=== PATIENT | female | born 1970 | race Caucasian/White ===

== ENCOUNTER 2017-04-03 06:23 | Inpatient (IN) ==
[2017-04-03] MEDS ORDERED: Ondansetron 4 MG/2 ML VIAL IVP ONE (06:36)
--- NOTE | 2017-04-03 06:36 | Emergency Department Note ---
START Narrative - START START: Patient to ED with abdominal pain. Patient saw her primary provider the other day. She states she was started on antibiotic for a UTI. She states she is getting worse. Patient currently taking Bactrim and Zofran. Subjective fever. On examination she is tachycardic. Systolic blood pressure in the 90s. Plan. UA with septic workup. Patient will be seen by dayshift.
[2017-04-03] MEDS: 0.9 % Sodium Chloride 1,000 ML IVC SCH ×2 (06:57→07:52)
[2017-04-03 07:04] LABS: Basophils % 0.2 %; Eosinophils % 0.1 %; Hematocrit 46.4 % (35.3-44.9); Hemoglobin 15.5 g/dL (11.5-15.4); Immature Granulocytes % 1.1 % (0-4); Lymphocytes # 0.4 K/mcL (0.6-4.6); Lymphocytes % 3.2 %; Mean Corpuscular HGB Conc 33.4 g/dL (31.6-35.5); Mean Corpuscular Volume 83.9 fL (83.0-100.0); Monocytes % 6.9 %; Neutrophils # 12.1 K/mcL (1.6-8.9); Platelet Count 298 K/mcL (140-400); Red Blood Count 5.53 M/mcL (3.82-4.97); Segmented Neutrophils % 88.5 %
[2017-04-03 07:10] LABS: Bilirubin,Urine Moderate (Negative); Blood,Urine Large (Negative); Clarity,Urine Cloudy (Clear); Color,Urine Orange (Yellow); Glucose,Urine (UA) >=1000 mg/dL (Normal); Ketones,Urine 80 mg/dL (Negative); Leukocyte Esterase,Urine Small (Negative); Nitrite,Urine Positive (Negative); Protein,Urine 100 mg/dL (Neg-Trace); Specific Gravity,Urine 1.027 (1.010-1.025); Urobilinogen,Urine Normal (Normal)
[2017-04-03 07:11] LABS: Prothrombin Time 11.1 Seconds (9.4-12.1)
[2017-04-03 07:12] LABS: Squamous Epithelial Cell,Urine Many per lpf (None-Few); WBC,Urine TNTC per hpf (0-3)
--- NOTE | 2017-04-03 07:13 | Emergency Department Note ---
Disposition Clinical Impression: DAREK (acute kidney injury), Pyelonephritis Urinary tract infection Qualifiers: Urinary tract infection type: site unspecified Hematuria presence: with hematuria Qualified Code(s): N39.0 - Urinary tract infection, site not specified Sepsis Qualifiers: Sepsis type: sepsis due to unspecified organism Qualified Code(s): A41.9 - Sepsis, unspecified organism DKA (diabetic ketoacidoses) Qualifiers: Diabetes mellitus type: other specified (including KAVITHA) Diabetes mellitus complication detail: without coma Qualified Code(s): E13.10 - Other specified diabetes mellitus with ketoacidosis without coma Disposition: Admitted As Inpatient Condition: Critical Referrals: Lee Ann Joya [employer] [Primary Care Provider] - Forms: ED Satisfaction Letter Time of Disposition: 08:08 General Adult HPI - General Chief complaint: ED Urogenital-Female Stated complaint: "Kidney infection" Time Seen by Provider: 04/03/17 06:28 Source: family Mode of arrival: ambulatory Limitations: no limitations Nursing Notes Reviewed: Yes Vital Signs Reviewed: Yes - History of Present Illness HPI Narrative: 47-year-old female with history of diabetes arrives [facility] emergency department with concern for feeling ill. The patient's family noted that the patient went to PCPs office 3 days ago for evaluation of right flank pain. Dip in the office noted a UTI the patient was treated with an IM injection of antibiotic since started on Bactrim by mouth. The patient has been taking the medications. In addition the patient was started on Januvia. The patient arrives to the emergency department with continued worsening condition, alteration in mentation, and tachycardia. The patient was a sign out from the night team and labs were initially placed by them. The patient is a diabetic with a glucose that read 400's this morning. The patient has never been in DKA or been this sick in the past according to family. Onset (ago): day(s) (3) Location: right (flank) Radiation: non-radiation Pain Severity: moderate Pain Scale: 5 Quality: aching Consistency: constant, Worsening Improves with: nothing Worsens with: nothing Associated symptoms: Reports: fever/chills, malaise, nausea/vomiting, weakness Treatments Prior to Arrival: none - Related Data Allergies Allergy/AdvReac Type Severity Reaction Status Date / Time No Known Allergies Allergy Verified 04/03/17 06:24 All systems ED: reviewed and negative except as stated. Constitutional: Reports: fever, chills, weakness Eyes: Denies: vision change ENT ED: Denies: congestion Cardiovascular: Denies: chest pain Respiratory: Denies: dyspnea Gastrointestinal: Reports: abdominal pain, nausea. Denies: vomiting, diarrhea, constipation, hematemesis, melena, hematochezia Genitourinary: Reports: dysuria. Denies: urgency, frequency, hematuria Musculoskeletal: Reports: myalgia. Denies: back pain, neck pain, arthralgia Integumentary: Denies: rash Neurological: Reports: weakness, confusion. Denies: headache Past Medical History - Past Medical History Attestation: Yes The following information was validated with the patient. Source: patient Medical history: Reports: diabetes Surgical history: Reports: non-contributory Psychiatric history: Reports: depression - Social History Smoking Status: Never smoker Smokeless Tobacco Status: No Alcohol use: Reports: none Drug use: Reports: none Physical Exam - General Limitations: altered mental status General appearance: alert, in no apparent distress - Head Head exam: atraumatic, normocephalic, normal inspection - Eye Eye exam: Present: normal appearance, PERRL, EOMI - ENT ENT exam: normal exam, normal oropharynx, mucous membranes moist - Neck Neck exam: Present: normal inspection, full ROM, trachea midline - Chest Chest inspection: Present: normal inspection, symmetric chest wall rise - Respiratory Respiratory exam: Present: normal lung sounds bilaterally - Cardiovascular Cardiovascular exam: Present: normal rhythm, tachycardia, normal heart sounds - Abdominal Exam Abdominal exam: Present: soft, tenderness (Right flank). Absent: distention, guarding, rebound, rigidity, heel tap sign - Extremities Exam Extremities exam: Present: normal inspection, full ROM. Absent: tenderness, pedal edema - Neurological Exam Neurological exam: Present: alert, oriented X3 - Skin Skin exam: Present: warm, dry, intact, normal color Course Vital Signs Temperature 98.1 F 04/03/17 06:24 Pulse Rate 149 04/03/17 06:24 Respiratory Rate 20 04/03/17 06:24 Blood Pressure 99/69 04/03/17 06:24 O2 Sat by Pulse Oximetry 100 04/03/17 06:24 Temperature 98.1 F 04/03/17 06:24 Pulse Rate 135 04/03/17 08:06 Respiratory Rate 20 04/03/17 08:06 Blood Pressure 136/81 04/03/17 08:06 O2 Sat by Pulse Oximetry 99 04/03/17 08:06 Oxygen Delivery Oxygen Delivery Room Air Medical Decision Making - MDM Narrative Medical decision making narrative: Patient's workup here demonstrates findings consistent with DKA, and urosepsis. Patient's CT scan reveals no obstructive urolithiasis. The patient does have findings consistent with pyelonephritis. The patient was given 4 L of IV fluids here in the emergency department as well as being on an insulin drip. The patient was given vancomycin and Zosyn for concern for sepsis. The patient' s heart rate has continued to decline the 140s. Her blood pressure quickly responded to IV fluids as well. The patient's mental status remains altered at this time. Given the patient's pH and bicarbonate levels, I am concerned about the patient and feel as though the patient needs ICU admission criteria. I spoke with the poising inspector, Dr. King, who agrees with admission. We will admit the patient to the ICU at this time. Patient's family made aware and agreed to plan. No further questions or concerns. - Medical Records Medical records reviewed: Yes I reviewed the patient's medical records. - Lab Data Lab results reviewed: Yes I reviewed the patient's lab results. Result diagrams: 04/03/17 06:48 04/03/17 06:48 Lab Results 04/03/17 04/03/17 04/03/17 Range/Units 06:48 06:48 06:48 WBC 13.7 H (4.3-11.1) K/mcL RBC 5.53 H (3.82-4.97) M/mcL Hgb 15.5 H (11.5-15.4) g/dL Hct 46.4 H (35.3-44.9) % MCV 83.9 (83.0-100.0) fL MCH 28.0 (28.0-33.3) pg MCHC 33.4 (31.6-35.5) g/dL RDW 12.0 (11.5-14.5) % Plt Count 298 (140-400) K/mcL MPV 10.0 (9.4-12.4) fL Immature Gran % 1.1 (0-4) % Seg Neutrophils % 88.5 % Lymphocytes % 3.2 % Monocytes % 6.9 % Eosinophils % 0.1 % Basophils % 0.2 % Neutrophils # 12.1 H (1.6-8.9) K/mcL Lymphocytes # 0.4 L (0.6-4.6) K/mcL Monocytes # 1.0 (0.0-1.3) K/mcL Eosinophils # 0.0 (0.0-0.6) K/mcL Basophils # 0.0 (0.0-0.2) K/mcL PT 11.1 (9.4-12.1) Seconds INR 1.0 APTT 26.0 (26.0-36.0) Seconds VBG pH (7.32-7.42) pH Units VBG pCO2 (41-51) mmHg VBG pO2 (25-50) mmHg VBG HCO3 (21-27) mEq/L Sodium (136-145) mEq/L Potassium (3.5-4.5) mEq/L Chloride (98-109) mEq/L Carbon Dioxide (19-29) mEq/L BUN (7-20) mg/dL Creatinine (0.57-1.11) mg/dL Est GFR ( Amer) (> 60) Est GFR (Non-Af Amer) (> 60) BUN/Creatinine Ratio (6-26) Glucose (70-99) mg/dL Calculated Osmolality (280-300) Lactic Acid (0.5-2.2) mmol/L Calcium (8.6-10.8) mg/dL Magnesium (1.6-2.6) mg/dL Total Bilirubin (0.2-1.2) mg/dL Direct Bilirubin (0.0-0.5) mg/dL Indirect Bilirubin (0.0-1.2) mg/dL AST (5-34) Units/L ALT (0-55) Units/L Alkaline Phosphatase (38-126) Units/L Troponin I (0-0.03) ng/mL Serum Total Protein (6.0-8.3) g/dL Albumin (3.5-5.0) g/dL Globulin (2.4-3.5) g/dL Albumin/Globulin Ratio (1.1-2.2) Lipase (8-78) Units/L Beta-Hydroxybutyric Acd (0.02-0.27) mmol/L Urine Color [place] A (Yellow) Urine Clarity Cloudy A (Clear) Urine pH 6.0 (5.0-8.0) pH Units Ur Specific [place] 1.027 H (1.010-1.025) Urine Protein 100 H (Neg-Trace) mg/dL Urine Glucose (UA) >=1000 H (Normal) mg/dL Urine Ketones 80 H (Negative) mg/dL Urine Blood Large H (Negative) Urine Nitrite Positive A (Negative) Urine Bilirubin Moderate H (Negative) Urine Urobilinogen Normal (Normal) mg/dL Ur Leukocyte Esterase Small H (Negative) Urine Microscopic RBC TNTC H (0-3) per hpf Urine Microscopic WBC TNTC H (0-3) per hpf Ur Squamous Epith Cells Many H (None-Few) per lpf Amorphous Sediment Moderate H (Few) Urine Bacteria Few (None-Few) per hpf Ur Culture Indicated? NO (NO) Person Notif of Crit 04/03/17 04/03/17 04/03/17 Range/Units 06:48 06:48 06:48 WBC (4.3-11.1) K/mcL RBC (3.82-4.97) M/mcL Hgb (11.5-15.4) g/dL Hct (35.3-44.9) % MCV (83.0-100.0) fL MCH (28.0-33.3) pg MCHC (31.6-35.5) g/dL RDW (11.5-14.5) % Plt Count (140-400) K/mcL MPV (9.4-12.4) fL Immature Gran % (0-4) % Seg Neutrophils % % Lymphocytes % % Monocytes % % Eosinophils % % Basophils % % Neutrophils # (1.6-8.9) K/mcL Lymphocytes # (0.6-4.6) K/mcL Monocytes # (0.0-1.3) K/mcL Eosinophils # (0.0-0.6) K/mcL Basophils # (0.0-0.2) K/mcL PT (9.4-12.1) Seconds INR APTT (26.0-36.0) Seconds VBG pH (7.32-7.42) pH Units VBG pCO2 (41-51) mmHg VBG pO2 (25-50) mmHg VBG HCO3 (21-27) mEq/L Sodium 125 L (136-145) mEq/L Potassium 4.6 H (3.5-4.5) mEq/L Chloride 93 L (98-109) mEq/L Carbon Dioxide 6 L* (19-29) mEq/L BUN 49 H (7-20) mg/dL Creatinine 2.56 H (0.57-1.11) mg/dL Est GFR ( Amer) 24 L (> 60) Est GFR (Non-Af Amer) 20 L (> 60) BUN/Creatinine Ratio 19 (6-26) Glucose 696 H* (70-99) mg/dL Calculated Osmolality 306 H (280-300) Lactic Acid 2.7 H (0.5-2.2) mmol/L Calcium 11.1 H (8.6-10.8) mg/dL Magnesium 2.6 (1.6-2.6) mg/dL Total Bilirubin 0.2 (0.2-1.2) mg/dL Direct Bilirubin 0.2 (0.0-0.5) mg/dL Indirect Bilirubin 0.0 (0.0-1.2) mg/dL AST 7 (5-34) Units/L ALT 7 (0-55) Units/L Alkaline Phosphatase 165 H (38-126) Units/L Troponin I 0.01 (0-0.03) ng/mL Serum Total Protein 9.4 H (6.0-8.3) g/dL Albumin 3.4 L (3.5-5.0) g/dL Globulin 6.0 H (2.4-3.5) g/dL Albumin/Globulin Ratio 0.6 L (1.1-2.2) Lipase 93 H (8-78) Units/L Beta-Hydroxybutyric Acd > 2.00 H (0.02-0.27) mmol/L Urine Color (Yellow) Urine Clarity (Clear) Urine pH (5.0-8.0) pH Units Ur Specific [place] (1.010-1.025) Urine Protein (Neg-Trace) mg/dL Urine Glucose (UA) (Normal) mg/dL Urine Ketones (Negative) mg/dL Urine Blood (Negative) Urine Nitrite (Negative) Urine Bilirubin (Negative) Urine Urobilinogen (Normal) mg/dL Ur Leukocyte Esterase (Negative) Urine Microscopic RBC (0-3) per hpf Urine Microscopic WBC (0-3) per hpf Ur Squamous Epith Cells (None-Few) per lpf Amorphous Sediment (Few) Urine Bacteria (None-Few) per hpf Ur Culture Indicated? (NO) Person Notif of Crit 04/03/17 Range/Units 07:37 WBC (4.3-11.1) K/mcL RBC (3.82-4.97) M/mcL Hgb (11.5-15.4) g/dL Hct (35.3-44.9) % MCV (83.0-100.0) fL MCH (28.0-33.3) pg MCHC (31.6-35.5) g/dL RDW (11.5-14.5) % Plt Count (140-400) K/mcL MPV (9.4-12.4) fL Immature Gran % (0-4) % Seg Neutrophils % % Lymphocytes % % Monocytes % % Eosinophils % % Basophils % % Neutrophils # (1.6-8.9) K/mcL Lymphocytes # (0.6-4.6) K/mcL Monocytes # (0.0-1.3) K/mcL Eosinophils # (0.0-0.6) K/mcL Basophils # (0.0-0.2) K/mcL PT (9.4-12.1) Seconds INR APTT (26.0-36.0) Seconds VBG pH 7.13 L* (7.32-7.42) pH Units VBG pCO2 22 L (41-51) mmHg VBG pO2 61 H (25-50) mmHg VBG HCO3 7 L (21-27) mEq/L Sodium (136-145) mEq/L Potassium (3.5-4.5) mEq/L Chloride (98-109) mEq/L Carbon Dioxide (19-29) mEq/L BUN (7-20) mg/dL Creatinine (0.57-1.11) mg/dL Est GFR ( Amer) (> 60) Est GFR (Non-Af Amer) (> 60) BUN/Creatinine Ratio (6-26) Glucose (70-99) mg/dL Calculated Osmolality (280-300) Lactic Acid (0.5-2.2) mmol/L Calcium (8.6-10.8) mg/dL Magnesium (1.6-2.6) mg/dL Total Bilirubin (0.2-1.2) mg/dL Direct Bilirubin (0.0-0.5) mg/dL Indirect Bilirubin (0.0-1.2) mg/dL AST (5-34) Units/L ALT (0-55) Units/L Alkaline Phosphatase (38-126) Units/L Troponin I (0-0.03) ng/mL Serum Total Protein (6.0-8.3) g/dL Albumin (3.5-5.0) g/dL Globulin (2.4-3.5) g/dL Albumin/Globulin Ratio (1.1-2.2) Lipase (8-78) Units/L Beta-Hydroxybutyric Acd (0.02-0.27) mmol/L Urine Color (Yellow) Urine Clarity (Clear) Urine pH (5.0-8.0) pH Units Ur Specific [place] (1.010-1.025) Urine Protein (Neg-Trace) mg/dL Urine Glucose (UA) (Normal) mg/dL Urine Ketones (Negative) mg/dL Urine Blood (Negative) Urine Nitrite (Negative) Urine Bilirubin (Negative) Urine Urobilinogen (Normal) mg/dL Ur Leukocyte Esterase (Negative) Urine Microscopic RBC (0-3) per hpf Urine Microscopic WBC (0-3) per hpf Ur Squamous Epith Cells (None-Few) per lpf Amorphous Sediment (Few) Urine Bacteria (None-Few) per hpf Ur Culture Indicated? (NO) Person Notif of Crit DR SEGURA - Radiology Data Radiology results reviewed: Yes I reviewed the patient's radiology results. - EKG Data EKG #1 EKG attestation: Yes I reviewed and interpreted this EKG. EKG results narrative: Heart rate 1 44 bpm. A QTc 384 ms. Sinus tachycardia. No ST elevation or ST depression noted. Critical Care Time Critical Care Time: Yes Total Critical Care Time: 35 Attestation: The high probability of a clinically significant, sudden or life threatening deterioration of the [endo] system(s) required my full and direct attention, intervention and personal management. The aggregate critical care time was [35] minutes. This time is in addition to time spent performing reported procedures but includes the following: [x] Data Review and interpretation [x] Patient assessment and monitoring of vital signs [x] Documentation [x] Medication orders and management Attestation Statement - Attestation Attestation: I examined this patient and my medical decision-making was reviewed with the Resident Physician, Dr. Segura. I agree with the documented findings, disposition and treatment plan as described except to the extent set forth below. Patient's 47-year-old white female with a history of diabetes mellitus type 1 on insulin who presents to the emergency department brought by her family this morning for altered mental status following a recent UTI that was diagnosed by her family physician on Tuesday. Patient was prescribed Bactrim to take orally and since that time has had symptoms of gradually worsening right-sided flank pain, lower abdominal pain, occasional nausea and vomiting, last episode about 2 AM this morning an overwhelming generalized weakness. Patient has seemed more confused this morning and her blood sugars are reading high. Patient arrived awake verbally responsive to questions but appears extremely fatigued and dehydrated with dry lips and mucous membranes. Patient was signed out to us by the pediatrician/medical doctor after initial assessment and labs have been ordered with fluid boluses initiated based on patient meeting SIRS criteria on her vital signs on arrival. Patient denies any chest pain pressure or heaviness, no shortness of breath, no preceding upper respiratory symptoms cough or sore throat. No rash or skin changes are noted. I agree patient's physical exam findings as documented. Patient is tachycardic and hypotensive on arrival. 2 large bore IVs were established and patient was started on IV fluid boluses. Patient is placed on athletic monitor and continuous pulse ox and EKG was obtained on arrival. EKG shows a sinus tachycardia in the 140s without ischemic changes. Patient's laboratory values show a profound Metabolic acidosis with CO2 6 and sugar in the 600s. Patient's urinalysis confirms infectious source in the urine. IV antibiotics were initiated and blood cultures were obtained. Urine culture also sent. Insulin drip will be initiated. Patient does have a prior history of kidney stones we will obtain CT imaging to rule out any retained stone that could be contributing to her infection. At this time patient's blood pressures improved and she remained tachycardic following initial fluids we will continue to monitor closely and plan is to admit to the ICU.
[2017-04-03 07:18] LABS: Alanine Aminotransferase 7 Units/L (0-55); Albumin 3.4 g/dL (3.5-5.0); Albumin/Globulin Ratio 0.6 (1.1-2.2); Alkaline Phosphatase 165 Units/L (38-126); Aspartate Amino Transferase 7 Units/L (5-34); BUN/Creatinine Ratio 19 (6-26); Bilirubin,Direct 0.2 mg/dL (0.0-0.5); Bilirubin,Total 0.2 mg/dL (0.2-1.2); Blood Urea Nitrogen 49 mg/dL (7-20); Calcium 11.1 mg/dL (8.6-10.8); Chloride 93 mEq/L (98-109); Lipase 93 Units/L (8-78); Magnesium 2.6 mg/dL (1.6-2.6); Osmolality,Calculated 306 (280-300); Potassium 4.6 mEq/L (3.5-4.5); Sodium 125 mEq/L (136-145); Total Protein 9.4 g/dL (6.0-8.3); eGFR For African Americans 24 (> 60); eGFR For Non-African Americans 20 (> 60)
[2017-04-03 07:21] LABS: Carbon Dioxide 6 mEq/L (19-29); Glucose 696 mg/dL (70-99)
[2017-04-03 07:23] LABS: Amorphous Sediment,Urine Moderate (Few)
[2017-04-03] MEDS ORDERED: Piperacillin/Tazobactam 3.375 GM in D5% in Water (Mini-Bag+) 100 ML IVPB ONE (07:23)
[2017-04-03] MEDS ORDERED: *HR* Dextrose 50 % in Water (Syg) 50 ML SYRINGE IVP PRN ×2 (07:23→08:42)
[2017-04-03] MEDS ORDERED: Vancomycin 1,000 MG in D5% in Water 250 ML IVPB ONE (07:23)
[2017-04-03 07:24] LABS: RBC,Urine TNTC per hpf (0-3)
[2017-04-03 07:25] LABS: Bacteria,Urine Few per hpf (None-Few)
[2017-04-03] MEDS ORDERED: Piperacillin/Tazobactam 3.375 GM in Water for inj. (sterile) 20 ML IVP ONE (07:35)
[2017-04-03 07:41] LABS: VBG HCO3 7 mEq/L (21-27); VBG PCO2 22 mmHg (41-51); VBG PH 7.13 pH Units (7.32-7.42); VBG PO2 61 mmHg (25-50)
[2017-04-03] MEDS: Insulin Human Regular 100 UNIT in 0.9 % Sodium Chloride 100 ML IVC SCH ×2 (08:00→23:20)
[2017-04-03 08:04] LABS: Beta-Hydroxybutyric Acid > 2.00 mmol/L (0.02-0.27)
[2017-04-03] MEDS ORDERED: 0.9 % Sodium Chloride 1,000 ML IVC ONE ×2 (08:04)
[2017-04-03] MEDS ORDERED: Insulin Regular, Human 100 UNIT/ML IV PRN (08:42)
--- NOTE | 2017-04-03 09:15 | Pulmonology History & Physical ---
<Hannah Hoyt M - Last Filed: 04/03/17 11:15> Date of Encounter: 04/03/17 History of Present Illness HPI: Ms. Anton is a 47 year old female Medications and Allergies Dicyclomine [Bentyl] 20 mg PO QID 04/03/17 [History] Gabapentin [Neurontin] 600 mg PO TID 04/03/17 [History] Insulin ASPART [Novolog Flexpen] 0 units SQ TID PRN 04/03/17 [History] Insulin Glargine,Hum.rec.anlog [Lantus Solostar] 35 unit SQ BID 04/03/17 [ History] Ondansetron ODT [Zofran ODT] 8 mg SL DAILY PRN 04/03/17 [History] Paliperidone Palmitate [Invega Sustenna] 156 mg IJ QMONTH 04/03/17 [History] Phenazopyridine HCl 200 mg PO TID 04/03/17 [History] Pravastatin Sodium [Pravachol] 40 mg PO DAILY 04/03/17 [History] Sertraline [Zoloft] 50 mg PO DAILY 04/03/17 [History] Sitagliptin Phosphate [Januvia] 50 mg PO DAILY 04/03/17 [History] Sulfamethoxazole/Trimeth DS [Bactrim DS] 1 tab PO BID 04/03/17 [History] 3 Allergy/AdvReac Type Severity Reaction Status Date / Time No Known Allergies Allergy Verified 04/03/17 10:23 All Systems: A 10-system review of systems was performed and is negative for pertinent findings except as documented above in the HPI. Physical Examination Vital Signs: Vital Signs, Last 4 Hours Pulse Resp BP Pulse Ox 04/03/17 10:00 140 14 116/85 04/03/17 08:44 138 04/03/17 08:30 20 141/89 04/03/17 08:23 136 20 143/84 99 Results - Laboratory Findings CBC and BMP: 04/03/17 06:48 04/03/17 06:48 PT/INR, D-dimer PT 11.1 Seconds (9.4-12.1) 04/03/17 06:48 Abnormal lab findings: Abnormal lab results WBC 13.7 K/mcL (4.3-11.1) H 04/03/17 06:48 RBC 5.53 M/mcL (3.82-4.97) H 04/03/17 06:48 Hgb 15.5 g/dL (11.5-15.4) H 04/03/17 06:48 Hct 46.4 % (35.3-44.9) H 04/03/17 06:48 Neutrophils # 12.1 K/mcL (1.6-8.9) H 04/03/17 06:48 Lymphocytes # 0.4 K/mcL (0.6-4.6) L 04/03/17 06:48 VBG pH 7.13 pH Units (7.32-7.42) L* 04/03/17 07:37 VBG pCO2 22 mmHg (41-51) L 04/03/17 07:37 VBG pO2 61 mmHg (25-50) H 04/03/17 07:37 VBG HCO3 7 mEq/L (21-27) L 04/03/17 07:37 Sodium 125 mEq/L (136-145) L 04/03/17 06:48 Potassium 4.6 mEq/L (3.5-4.5) H 04/03/17 06:48 Chloride 93 mEq/L (98-109) L 04/03/17 06:48 Carbon Dioxide 6 mEq/L (19-29) L* 04/03/17 06:48 BUN 49 mg/dL (7-20) H 04/03/17 06:48 Creatinine 2.56 mg/dL (0.57-1.11) H 04/03/17 06:48 Est GFR ( Amer) 24 (> 60) L 04/03/17 06:48 Est GFR (Non-Af Amer) 20 (> 60) L 04/03/17 06:48 Glucose 696 mg/dL (70-99) H* 04/03/17 06:48 POC Glucose 366 (58-89) H 04/03/17 10:18 Hemoglobin A1c 11.8 % (-5.6) H 04/03/17 06:48 Calculated Osmolality 306 (280-300) H 04/03/17 06:48 Calcium 11.1 mg/dL (8.6-10.8) H 04/03/17 06:48 Alkaline Phosphatase 165 Units/L (38-126) H 04/03/17 06:48 Serum Total Protein 9.4 g/dL (6.0-8.3) H 04/03/17 06:48 Albumin 3.4 g/dL (3.5-5.0) L 04/03/17 06:48 Globulin 6.0 g/dL (2.4-3.5) H 04/03/17 06:48 Albumin/Globulin Ratio 0.6 (1.1-2.2) L 04/03/17 06:48 Lipase 93 Units/L (8-78) H 04/03/17 06:48 Beta-Hydroxybutyric Acd > 2.00 mmol/L (0.02-0.27) H 04/03/17 06:48 Urine Color [place] (Yellow) A 04/03/17 06:48 Urine Clarity Cloudy (Clear) A 04/03/17 06:48 Ur Specific [place] 1.027 (1.010-1.025) H 04/03/17 06:48 Urine Protein 100 mg/dL (Neg-Trace) H 04/03/17 06:48 Urine Glucose (UA) >=1000 mg/dL (Normal) H 04/03/17 06:48 Urine Ketones 80 mg/dL (Negative) H 04/03/17 06:48 Urine Blood Large (Negative) H 04/03/17 06:48 Urine Nitrite Positive (Negative) A 04/03/17 06:48 Urine Bilirubin Moderate (Negative) H 04/03/17 06:48 Ur Leukocyte Esterase Small (Negative) H 04/03/17 06:48 Urine Microscopic RBC TNTC per hpf (0-3) H 04/03/17 06:48 Urine Microscopic WBC TNTC per hpf (0-3) H 04/03/17 06:48 Ur Squamous Epith Cells Many per lpf (None-Few) H 04/03/17 06:48 Amorphous Sediment Moderate (Few) H 04/03/17 06:48 - Attending Attestation I examined this patient and my medical decision-making was reviewed with the Resident Physician. I agree with the documented findings, disposition and treatment plan as described except to the extent set forth below. Patient seen and examined. Labs, radiology, chart personally reviewed. Agree with resident's history and physical, assessment, plan with following comments: PRICING DIRECTOR: Patient follows commands, Pulmonary: Acceptable oxygenation and ventilation Cardiovascular: Hypotension and fluid resuscitation GI: Nutrition per dietary and GI prophylaxis per routine Heme: DVT prophylaxis per routine ID: Continue antibiotics and plan to de-escalation. Source most likely its urinary system and antibiotics coverage. Renal; urine out put and renal funtion reviewed. Patient with acute kidney injury and the expected fluid resuscitation will improve. Endorcine: blood glucose is monitored. Patient with DKA which will be treated per protocol. Fluid resuscitation and insulin and to continue monitor electrolytes. Lines: all lines checked and no evidence of infections Skin: skin care to prevent pressure ulcers per nursing routine care <Honey Cross - Last Filed: 04/03/17 16:38> Date of Encounter: 04/03/17 Time of Encounter: 09:15 Assessment and Plan (1) DKA (diabetic ketoacidoses) Current visit: Yes Status: Acute Patient with a blood glucose of 696, VBG pH of 7.13, A1c of 11.8, bicarbonate of 6, and beta-hydroxybutyrate of greater than 2 on arrival to the emergency department. Anion gap of 26. -Patient's initial hypotension very responsive to fluid resuscitation. -Aggressive fluid resuscitation according to DKA protocol.. -Potassium repletion according to DKA protocol. -Hypoglycemia protocol. Qualifiers: Diabetes mellitus type: type 1 Diabetes mellitus complication detail: without coma Qualified Code(s): E10.10 - Type 1 diabetes mellitus with ketoacidosis without coma (2) Pyelonephritis Current visit: Yes Status: Acute CT of abdomen and pelvis on 04/03/2017 shows prominence of the ureters bilaterally with periureteral inflammatory change suggestive of pyelonephritis. -Urinalysis with positive nitrite and leuk esterase, Lactic acid 2.7, white blood cell count 13.7. -Patient received a dose of vancomycin in the emergency department as well as Zosyn. -Continue Zosyn (started 04/03) for pyelonephritis and urosepsis. -Follow-up urine culture. (3) Sepsis Current visit: Yes Status: Acute Patient tachycardic and hypotensive on arrival to the emergency department. Lactic acid 2.7 and white blood count 13.7. -Source likely urinary tract infection as patient has urinalysis suggestive of urinary tract infection and CT scan suggestive of ascending infection. -Follow-up blood cultures. -Continue Zosyn. Qualifiers: Sepsis type: sepsis due to unspecified organism Qualified Code(s): A41.9 - Sepsis, unspecified organism (4) DAREK (acute kidney injury) Current visit: Yes Status: Acute Patient's initial serum creatinine 2.56 this morning on arrival. -Trending down this afternoon to 1.66, likely secondary to fluid resuscitation. -Continue to monitor. (5) Urinary tract infection Current visit: Yes Status: Acute Urinalysis suggestive of UTI with positive nitrites and leuk esterases as per above under pyelonephritis. -Follow-up urine culture. -Continue Zosyn started on 04/03/2017. Qualifiers: Urinary tract infection type: acute cystitis Hematuria presence: with hematuria Qualified Code(s): N30.01 - Acute cystitis with hematuria (6) Bipolar 1 disorder Current visit: Yes Status: Acute -Resume home psych med zoloft. (7) Hyperlipidemia Current visit: Yes Status: Acute -Resume pravastatin. Qualifiers: Hyperlipidemia type: unspecified Qualified Code(s): E78.5 - Hyperlipidemia , unspecified (8) DVT prophylaxis Current visit: Yes Status: Acute Heparin 5000 units subcutaneous twice a day -GI prophylaxis: Protonix 40 mg IV daily. History of Present Illness Chief complaint: Feeling Ill HPI: Ms. Anton is a 47 year old female with past medical history of type 1 diabetes on insulin who presented to [facility] Emergency Department on 04/03/2017. Patient was accompanied by her family brought in for altered mental status following a recent UTI that was diagnosed by her family physician on Tuesday. Patient was initially prescribed bactrim, however, she has had worsening right-sided flank pain, lower abdominal pain, and nausea and vomiting. She claims she has had generalized weakness. She reports confusion this morning and elevated blood sugars. In the emergency department, patient was found to have pyelonephritis, urosepsis, DKA, and meeting SIRS criteria. She was tachycardic and hypotensive on arrival. IV access was established and received 2 IV fluid boluses while in the emergency department, she was started on a finance administrator and continuous pulse ox, and EKG was obtained which showed sinus tachycardia without ischemic changes. Past Med Surg Social Fam HX - Past Medical History Attestation: Yes The following information was validated with the patient. Source: old records reviewed, nursing notes reviewed Medical history: diabetes Psychiatric history: bipolar, depression - Past Surgical History Surgical History: hysterectomy - Social History Smoking Status: Never smoker Smokeless Tobacco Status: No Alcohol use: none Drug use: none All Systems: A 10-system review of systems was performed and is negative for pertinent findings except as documented above in the HPI. - Constitutional Constitutional: as per HPI, fatigue, weakness, no fever(s), no frequent falls, no headache(s) - EENT Eyes: no loss of vision Ears: no decreased hearing Nose, mouth and throat: dry mouth - Cardiovascular Cardiovascular: dyspnea, lightheadedness, no chest pain, no chest pain at rest, no dyspnea on exertion, no radiating jaw, neck or arm pain, no palpitations, no pedal edema - Respiratory Respiratory: no cough, no dyspnea on exertion, no chest congestion - Gastrointestinal Gastrointestinal: abdominal pain, nausea, vomiting, no cramping, no diarrhea, no hematemesis, no hematochezia - Genitourinary Genitourinary: no urinary frequency, no urinary incontinence - Integumentary Integumentary: no rash - Neurological Neurological: confusion Physical Examination Vital Signs: Vital Signs, Last 4 Hours Pulse Resp BP Pulse Ox 04/03/17 08:44 138 04/03/17 08:30 20 141/89 04/03/17 08:23 136 20 143/84 99 General appearance: lethargic Eyes: nonicteric ENT: oropharynx dry Neck: supple Effort: normal Auscultation: bilateral: clear Cardiovascular: other (tachycardia) Gastrointestinal: normoactive bowel sounds, tender (RLQ), non-distended Integumentary: normal Extremities: no cyanosis, no edema Results - Laboratory Findings CBC and BMP: 04/03/17 06:48 04/03/17 12:14 PT/INR, D-dimer PT 11.1 Seconds (9.4-12.1) 04/03/17 06:48 Abnormal lab findings: Abnormal lab results WBC 13.7 K/mcL (4.3-11.1) H 04/03/17 06:48 RBC 5.53 M/mcL (3.82-4.97) H 04/03/17 06:48 Hgb 15.5 g/dL (11.5-15.4) H 04/03/17 06:48 Hct 46.4 % (35.3-44.9) H 04/03/17 06:48 Neutrophils # 12.1 K/mcL (1.6-8.9) H 04/03/17 06:48 Lymphocytes # 0.4 K/mcL (0.6-4.6) L 04/03/17 06:48 VBG pH 7.13 pH Units (7.32-7.42) L* 04/03/17 07:37 VBG pCO2 22 mmHg (41-51) L 04/03/17 07:37 VBG pO2 61 mmHg (25-50) H 04/03/17 07:37 VBG HCO3 7 mEq/L (21-27) L 04/03/17 07:37 Sodium 125 mEq/L (136-145) L 04/03/17 06:48 Potassium 4.6 mEq/L (3.5-4.5) H 04/03/17 06:48 Chloride 93 mEq/L (98-109) L 04/03/17 06:48 Carbon Dioxide 6 mEq/L (19-29) L* 04/03/17 06:48 BUN 49 mg/dL (7-20) H 04/03/17 06:48 Creatinine 2.56 mg/dL (0.57-1.11) H 04/03/17 06:48 Est GFR ( Amer) 24 (> 60) L 04/03/17 06:48 Est GFR (Non-Af Amer) 20 (> 60) L 04/03/17 06:48 Glucose 696 mg/dL (70-99) H* 04/03/17 06:48 POC Glucose 516 (58-89) H* 04/03/17 08:44 Calculated Osmolality 306 (280-300) H 04/03/17 06:48 Calcium 11.1 mg/dL (8.6-10.8) H 04/03/17 06:48 Alkaline Phosphatase 165 Units/L (38-126) H 04/03/17 06:48 Serum Total Protein 9.4 g/dL (6.0-8.3) H 04/03/17 06:48 Albumin 3.4 g/dL (3.5-5.0) L 04/03/17 06:48 Globulin 6.0 g/dL (2.4-3.5) H 04/03/17 06:48 Albumin/Globulin Ratio 0.6 (1.1-2.2) L 04/03/17 06:48 Lipase 93 Units/L (8-78) H 04/03/17 06:48 Beta-Hydroxybutyric Acd > 2.00 mmol/L (0.02-0.27) H 04/03/17 06:48 Urine Color [place] (Yellow) A 04/03/17 06:48 Urine Clarity Cloudy (Clear) A 04/03/17 06:48 Ur Specific [place] 1.027 (1.010-1.025) H 04/03/17 06:48 Urine Protein 100 mg/dL (Neg-Trace) H 04/03/17 06:48 Urine Glucose (UA) >=1000 mg/dL (Normal) H 04/03/17 06:48 Urine Ketones 80 mg/dL (Negative) H 04/03/17 06:48 Urine Blood Large (Negative) H 04/03/17 06:48 Urine Nitrite Positive (Negative) A 04/03/17 06:48 Urine Bilirubin Moderate (Negative) H 04/03/17 06:48 Ur Leukocyte Esterase Small (Negative) H 04/03/17 06:48 Urine Microscopic RBC TNTC per hpf (0-3) H 04/03/17 06:48 Urine Microscopic WBC TNTC per hpf (0-3) H 04/03/17 06:48 Ur Squamous Epith Cells Many per lpf (None-Few) H 04/03/17 06:48 Amorphous Sediment Moderate (Few) H 04/03/17 06:48
[2017-04-03] MEDS ORDERED: Naloxone 0.4 MG/ML INJ IVP PRN (09:17)
[2017-04-03] MEDS ORDERED: Acetaminophen 325 MG TABLET PO PRN (09:17)
[2017-04-03] MEDS: 0.9 % Sodium Chloride w KCl 20 MEQ/1,000 ML MLS IVC SCH ×5 (09:55→17:21)
[2017-04-03 10:30] LABS: Hemoglobin A1C 11.8 %
[2017-04-03 12:34] LABS: Potassium 4.3 mEq/L (3.5-4.5)
[2017-04-03 12:37] LABS: Calcium 9.1 mg/dL (8.6-10.8)
[2017-04-03] MEDS: D5% in 0.45% NACL 1,000 ML IVC PRN ×2 (13:32→17:42)
[2017-04-03 14:27] LABS: VBG HCO3 11 mEq/L (21-27); VBG PCO2 28 mmHg (41-51); VBG PH 7.21 pH Units (7.32-7.42); VBG PO2 55 mmHg (25-50)
[2017-04-03] MEDS: Piperacillin/Tazobactam 3.375 GM/200 ML BAG IVPB SCH ×2 (16:40→23:20)
[2017-04-03] MEDS: Gabapentin 300 MG CAPSULE PO SCH ×2 (17:19→20:49)
[2017-04-03] MEDS: *HR* Heparin 5,000 UNIT/ML VIAL SQ SCH (17:31)
[2017-04-03 17:58] LABS: Calcium 9.1 mg/dL (8.6-10.8); Potassium 3.6 mEq/L (3.5-4.5)
[2017-04-03] MEDS: D5% in 0.45% NACL w KCl 20 MEQ/1,000 ML MLS IVC SCH (20:49)
[2017-04-03 22:21] LABS: Calcium 9.1 mg/dL (8.6-10.8); Potassium 3.2 mEq/L (3.5-4.5)
[2017-04-04] MEDS: *HR* Heparin 5,000 UNIT/ML VIAL SQ SCH ×2 (05:11→17:57)
[2017-04-04] MEDS: D5% in 0.45% NACL w KCl 20 MEQ/1,000 ML MLS IVC SCH (05:12)
[2017-04-04 05:47] LABS: Basophils % 0.1 %; Beta-Hydroxybutyric Acid 0.26 mmol/L (0.02-0.27); Eosinophils % 0.1 %; Hematocrit 34.9 % (35.3-44.9); Immature Granulocytes % 0.6 % (0-4); Lymphocytes # 0.4 K/mcL (0.6-4.6); Lymphocytes % 5.4 %; Mean Corpuscular HGB Conc 34.4 g/dL (31.6-35.5); Mean Corpuscular Hemoglobin 28.1 pg (28.0-33.3); Mean Corpuscular Volume 81.7 fL (83.0-100.0); Mean Platelet Volume 9.6 fL (9.4-12.4); Monocytes # 0.8 K/mcL (0.0-1.3); Neutrophils # 6.6 K/mcL (1.6-8.9); Platelet Count 236 K/mcL (140-400); Red Blood Count 4.27 M/mcL (3.82-4.97); Red Cell Distribution Width 12.3 % (11.5-14.5); Segmented Neutrophils % 83.8 %
[2017-04-04 05:48] LABS: VBG HCO3 14 mEq/L (21-27); VBG PCO2 29 mmHg (41-51); VBG PO2 79 mmHg (25-50)
[2017-04-04 05:55] LABS: BUN/Creatinine Ratio 20 (6-26); Blood Urea Nitrogen 20 mg/dL (7-20); Calcium 8.9 mg/dL (8.6-10.8); Carbon Dioxide 13 mEq/L (19-29); Chloride 116 mEq/L (98-109); Glucose 153 mg/dL (70-99); Osmolality,Calculated 288 (280-300); Potassium 3.2 mEq/L (3.5-4.5); Sodium 136 mEq/L (136-145); eGFR For African Americans > 60 (> 60); eGFR For Non-African Americans 59 (> 60)
[2017-04-04] MEDS ORDERED: D5% in 0.45% NACL 1,000 ML IVC PRN (07:20)
[2017-04-04] MEDS: Insulin Human Regular 100 UNIT in 0.9 % Sodium Chloride 100 ML IVC SCH (08:03)
[2017-04-04] MEDS ORDERED: Ondansetron 4 MG/2 ML VIAL IVP PRN (08:47)
[2017-04-04] MEDS ORDERED: Pantoprazole 40 MG VIAL IVP SCH (09:00)
[2017-04-04] MEDS: Insulin DETEMIR 100 UNIT/ML X5UNITS SQ SCH ×2 (09:14→20:22)
[2017-04-04] MEDS: Gabapentin 300 MG CAPSULE PO SCH ×3 (09:19→20:18)
--- NOTE | 2017-04-04 09:28 | Pulmonology Progress Note ---
<Adriel Flores - Last Filed: 04/04/17 14:21> Date of Encounter: 04/04/17 Time of Encounter: 09:26 Assessment and Plan (1) Sepsis Current Visit: Yes Status: Acute Improving. Sepsis secondary to pyelonephritis in the setting of DKA, patient met requirements of leukocytosis, tachypnea, tachycardia and initial lactic acid was 2.7. - Patient currently on IV Zosyn for an biotic coverage, hemodynamically stable, continues to be tachycardic, and mildly tachypneic. WBC count 7.9, neutrophilia resolved. - Blood culture negative - Patient received Bactrim by mouth in the outpatient setting prior to admission. Plan: - Continue IV Zosyn - Continue cardiac monitoring - Continue D5 and half-normal saline at 100 mL's per hour. - Continue monitoring electrolytes and replace as necessary. Qualifiers: Sepsis type: sepsis due to unspecified organism Qualified Code(s): A41.9 - Sepsis, unspecified organism (2) Pyelonephritis Current Visit: Yes Status: Acute Patient presented with flank pain bilaterally, superpubic discomfort, burning with urination and elevated ABC count. CT of the abdomen and pelvis upon admission IMPRESSION: Prominence of the ureters bilaterally with periureteral inflammatory change also noted bilaterally. No discrete obstructing calculi identified. Findings suggest either recently passed calculus or possibly ascending infectious process, such as pyelonephritis. Correlation with urinalysis suggested. Colonic diverticulosis without evidence for acute diverticulitis. Cholelithiasis. Plan: - Patient improving on IV Zosyn - Zhao catheter in place with blood-tinged urine with mild sediment in the tubing. - Continue strict intake and output monitoring (3) DKA (diabetic ketoacidoses) Current Visit: Yes Status: Acute Patient is an uncontrolled type II diabetic who does not use her insulin routinely at home. She admits only using 30 units of long-acting insulin daily and not her scheduled dosing. She states that her average glucoses are between 300 and 400. - Hemoglobin A1c 11.8 - Patient was treated for diabetic ketoacidosis upon admission with glucoses greater than 600, positive beta hydroxybutyrate, bicarbonate of 6, initial anion gap is 17 - Evaluation 04/04/2017, anion gap closed, bicarbonate 13, glucose in the low 100s, fluid balance +3750 ML Plan: - Start Levemir 20 units twice a day - Low-dose sliding scale insulin - Before meals at bedtime glucose checks - Diabetic diet Qualifiers: Diabetes mellitus type: type 1 Diabetes mellitus complication detail: without coma Qualified Code(s): E10.10 - Type 1 diabetes mellitus with ketoacidosis without coma (4) DAREK (acute kidney injury) Current Visit: Yes Status: Acute Acute kidney injury resolved, we will secondary to dehydration in setting of diabetic ketoacidosis and pyelonephritis. Continue to monitor during inpatient stay. Avoid nephrotoxic medications are renally dose antibiotics. (5) Systolic murmur Current Visit: Yes Status: Acute Systolic murmur appreciated on auscultation. Patient denies any known history, no previous documented murmur. Plan: Echocardiogram (6) DVT prophylaxis Current Visit: Yes Status: Acute Subcutaneous heparin 5000 units every 12 hours. Subjective Principal diagnosis: DKA Interval history: Patient seen and evaluated patient bedside this morning. She complains of nausea but no vomiting. She feels better since admission but continues to have burning in her suprapubic region and lower abdominal discomfort. She denies feeling hungry. We discussed her home dose of insulin which she admits to only taking 30 units once a day noncompliance with diet and her glucoses usually are between 304 100 daily. She states that she will take better care of her hyperglycemia after this admission. She denies any chest pain, palpitations or known history of murmur. Objective PUL Vital signs: Last Vital Signs Temp 98.3 F 04/04/17 07:27 Pulse 113 04/04/17 08:00 Resp 22 04/04/17 08:00 BP 129/67 04/04/17 08:00 Pulse Ox 98 04/04/17 08:00 General appearance: no acute distress, alert Eyes: nonicteric ENT: oropharynx moist Neck: supple Effort: normal Auscultation: bilateral: clear Percussion: bilateral: not dull Tactile fremitus: bilateral: normal Cardiovascular: murmur noted (grade 2/6), other (tachycardia) Gastrointestinal: normoactive bowel sounds, non-distended Integumentary: normal Extremities: no cyanosis, no edema, no clubbing Musculoskeletal: no deformities, ROM normal normal mental status, non-focal exam mood appropriate, affect normal bug bites on lower extremities bilaterally Results - Laboratory Findings CBC and BMP: 04/04/17 05:23 04/04/17 05:23 PT/INR, D-dimer PT 11.1 Seconds (9.4-12.1) 04/03/17 06:48 Abnormal lab findings: Abnormal lab results Hct 34.9 % (35.3-44.9) L 04/04/17 05:23 MCV 81.7 fL (83.0-100.0) L 04/04/17 05:23 Lymphocytes # 0.4 K/mcL (0.6-4.6) L 04/04/17 05:23 VBG pH 7.30 pH Units (7.32-7.42) L 04/04/17 05:44 VBG pCO2 29 mmHg (41-51) L 04/04/17 05:44 VBG pO2 79 mmHg (25-50) H 04/04/17 05:44 VBG HCO3 14 mEq/L (21-27) L 04/04/17 05:44 Potassium 3.2 mEq/L (3.5-4.5) L 04/04/17 05:23 Chloride 116 mEq/L (98-109) H 04/04/17 05:23 Carbon Dioxide 13 mEq/L (19-29) L 04/04/17 05:23 Est GFR (Non-Af Amer) 59 (> 60) L 04/04/17 05:23 Glucose 153 mg/dL (70-99) H 04/04/17 05:23 POC Glucose 129 (58-89) H 04/04/17 07:57 Hemoglobin A1c 11.8 % (-5.6) H 04/03/17 06:48 Alkaline Phosphatase 165 Units/L (38-126) H 04/03/17 06:48 Serum Total Protein 9.4 g/dL (6.0-8.3) H 04/03/17 06:48 Albumin 3.4 g/dL (3.5-5.0) L 04/03/17 06:48 Globulin 6.0 g/dL (2.4-3.5) H 04/03/17 06:48 Albumin/Globulin Ratio 0.6 (1.1-2.2) L 04/03/17 06:48 Lipase 93 Units/L (8-78) H 04/03/17 06:48 Urine Color [place] (Yellow) A 04/03/17 06:48 Urine Clarity Cloudy (Clear) A 04/03/17 06:48 Ur Specific [place] 1.027 (1.010-1.025) H 04/03/17 06:48 Urine Protein 100 mg/dL (Neg-Trace) H 04/03/17 06:48 Urine Glucose (UA) >=1000 mg/dL (Normal) H 04/03/17 06:48 Urine Ketones 80 mg/dL (Negative) H 04/03/17 06:48 Urine Blood Large (Negative) H 04/03/17 06:48 Urine Nitrite Positive (Negative) A 04/03/17 06:48 Urine Bilirubin Moderate (Negative) H 04/03/17 06:48 Ur Leukocyte Esterase Small (Negative) H 04/03/17 06:48 Urine Microscopic RBC TNTC per hpf (0-3) H 04/03/17 06:48 Urine Microscopic WBC TNTC per hpf (0-3) H 04/03/17 06:48 Ur Squamous Epith Cells Many per lpf (None-Few) H 04/03/17 06:48 Amorphous Sediment Moderate (Few) H 04/03/17 06:48 - Clinical Findings Intake & Output: Intake & Output 04/03/17 04/04/17 04/04/17 23:59 07:59 15:59 Intake Total 2050.5 / 2050.5 1200 / 1200 101 / 101 Output Total 1350 / 1350 1250 / 1250 Balance 700.5 / 700.5 -50 / -50 101 / 101 Weight 81.9 kg Consult Discharge Plan - Plan Referrals: Lee Ann Joya, IRONWORKER [Primary Care Provider] - <Leisa Goodman - Last Filed: 04/04/17 20:23> Date of Encounter: 04/04/17 Objective PUL Vital signs: Last Vital Signs Temp 98.3 F 04/04/17 16:00 Pulse 120 04/04/17 18:10 Resp 21 04/04/17 18:10 BP 137/82 04/04/17 18:10 Pulse Ox 97 04/04/17 18:10 Results - Laboratory Findings CBC and BMP: 04/04/17 05:23 04/04/17 05:23 PT/INR, D-dimer PT 11.1 Seconds (9.4-12.1) 04/03/17 06:48 Abnormal lab findings: Abnormal lab results Hct 34.9 % (35.3-44.9) L 04/04/17 05:23 MCV 81.7 fL (83.0-100.0) L 04/04/17 05:23 Lymphocytes # 0.4 K/mcL (0.6-4.6) L 04/04/17 05:23 VBG pH 7.30 pH Units (7.32-7.42) L 04/04/17 05:44 VBG pCO2 29 mmHg (41-51) L 04/04/17 05:44 VBG pO2 79 mmHg (25-50) H 04/04/17 05:44 VBG HCO3 14 mEq/L (21-27) L 04/04/17 05:44 Potassium 3.2 mEq/L (3.5-4.5) L 04/04/17 05:23 Chloride 116 mEq/L (98-109) H 04/04/17 05:23 Carbon Dioxide 13 mEq/L (19-29) L 04/04/17 05:23 Est GFR (Non-Af Amer) 59 (> 60) L 04/04/17 05:23 Glucose 153 mg/dL (70-99) H 04/04/17 05:23 POC Glucose 130 (58-89) H 04/04/17 16:42 Hemoglobin A1c 11.8 % (-5.6) H 04/03/17 06:48 Alkaline Phosphatase 165 Units/L (38-126) H 04/03/17 06:48 Serum Total Protein 9.4 g/dL (6.0-8.3) H 04/03/17 06:48 Albumin 3.4 g/dL (3.5-5.0) L 04/03/17 06:48 Globulin 6.0 g/dL (2.4-3.5) H 04/03/17 06:48 Albumin/Globulin Ratio 0.6 (1.1-2.2) L 04/03/17 06:48 Lipase 93 Units/L (8-78) H 04/03/17 06:48 Urine Color [place] (Yellow) A 04/03/17 06:48 Urine Clarity Cloudy (Clear) A 04/03/17 06:48 Ur Specific [place] 1.027 (1.010-1.025) H 04/03/17 06:48 Urine Protein 100 mg/dL (Neg-Trace) H 04/03/17 06:48 Urine Glucose (UA) >=1000 mg/dL (Normal) H 04/03/17 06:48 Urine Ketones 80 mg/dL (Negative) H 04/03/17 06:48 Urine Blood Large (Negative) H 04/03/17 06:48 Urine Nitrite Positive (Negative) A 04/03/17 06:48 Urine Bilirubin Moderate (Negative) H 04/03/17 06:48 Ur Leukocyte Esterase Small (Negative) H 04/03/17 06:48 Urine Microscopic RBC TNTC per hpf (0-3) H 04/03/17 06:48 Urine Microscopic WBC TNTC per hpf (0-3) H 04/03/17 06:48 Ur Squamous Epith Cells Many per lpf (None-Few) H 04/03/17 06:48 Amorphous Sediment Moderate (Few) H 04/03/17 06:48 - Clinical Findings Intake & Output: Intake & Output 04/04/17 04/04/17 04/04/17 07:59 15:59 23:59 Intake Total 1200 / 1200 101 / 101 10 Output Total 1250 / 1250 1000 / 1000 Balance -50 / -50 -899 / -899 - Attending Attestation I saw the patient with the resident agree with History and Physical exam findings. Labs and Radiology were reviewed AUTO REFINISHER: Patient is conscious oriented x3 following commands NECK : No JVD appreciated Pulmonary : Patient is on room air no evidence of V/Q mismatch Cardiac : Hemodynamically stable , ECHO showed some evidence of chronic diastolic dysfunction Nutrition/GI: Patient is on Diabetic diet Renal : DAREK improved after fluid resuscitation . Heme onc : No acute issues ID : Sepsis due to Pyelonephritis will change to Ceftriaxone as there is no prior history of pseudomonas Endo: Diabetes keto acidosis resolved , will transition to long acting and short acting insulin Musculo skeletal / skin issues : No acute issues Disposition : To monitor her in ICU Code status: Full Code
[2017-04-04] MEDS: Piperacillin/Tazobactam 3.375 GM/200 ML BAG IVPB SCH (10:21)
[2017-04-04] MEDS ORDERED: cefTRIAXone 1,000 MG in Water for inj. (sterile) 10 ML IVP SCH (14:00)
[2017-04-04] MEDS ORDERED: Dextrose Gel 15 GM PO PRN ×2 (17:40)
[2017-04-04] MEDS ORDERED: *HR* Dextrose 50 % in Water (Syg) 50 ML SYRINGE IVP PRN (17:40)
[2017-04-04] MEDS ORDERED: D5% in Water 1,000 ML IVC PRN (17:40)
[2017-04-04] MEDS ORDERED: Insulin LISPRO 300 UNITS/3 ML VIAL SQ SCH (21:00)
[2017-04-05 05:36] LABS: Basophils % 0.2 %; Eosinophils % 0.4 %; Hematocrit 35.6 % (35.3-44.9); Hemoglobin 12.3 g/dL (11.5-15.4); Immature Granulocytes % 0.7 % (0-4); Lymphocytes # 0.9 K/mcL (0.6-4.6); Lymphocytes % 16.2 %; Mean Corpuscular HGB Conc 34.6 g/dL (31.6-35.5); Mean Corpuscular Hemoglobin 28.6 pg (28.0-33.3); Mean Corpuscular Volume 82.8 fL (83.0-100.0); Mean Platelet Volume 9.9 fL (9.4-12.4); Monocytes # 0.6 K/mcL (0.0-1.3); Monocytes % 11.5 %; Platelet Count 216 K/mcL (140-400); Red Cell Distribution Width 12.5 % (11.5-14.5)
[2017-04-05 05:39] LABS: Albumin/Globulin Ratio 0.6 (1.1-2.2); Alkaline Phosphatase 89 Units/L (38-126); Aspartate Amino Transferase 10 Units/L (5-34); BUN/Creatinine Ratio 21 (6-26); Bilirubin,Total 0.4 mg/dL (0.2-1.2); Blood Urea Nitrogen 15 mg/dL (7-20); Carbon Dioxide 15 mEq/L (19-29); Chloride 115 mEq/L (98-109); Globulin 3.6 g/dL (2.4-3.5); Glucose 165 mg/dL (70-99); Osmolality,Calculated 293 (280-300); Potassium 3.3 mEq/L (3.5-4.5); Sodium 139 mEq/L (136-145); eGFR For African Americans > 60 (> 60); eGFR For Non-African Americans > 60 (> 60)
[2017-04-05 05:43] LABS: Alanine Aminotransferase < 6 Units/L (0-55); Albumin 2.2 g/dL (3.5-5.0); Total Protein 5.8 g/dL (6.0-8.3)
--- NOTE | 2017-04-05 06:46 | Pulmonology Progress Note ---
<Adriel Flores - Last Filed: 04/05/17 11:02> Date of Encounter: 04/05/17 Time of Encounter: 06:43 Assessment and Plan (1) Sepsis Current Visit: Yes Status: Acute Improving. patient still remains tachrdic, tachypnea,\ and WBC count normalized - Blood culture negative - Patient received Bactrim by mouth in the outpatient setting prior to admission. Plan: - Continue IV Ceftriaxone Day 2 - Continue cardiac monitoring - Continue D5 and half-normal saline at 100 mL's per hour. - Continue monitoring electrolytes and replace as necessary. Qualifiers: Sepsis type: sepsis due to unspecified organism Qualified Code(s): A41.9 - Sepsis, unspecified organism (2) Metabolic acidosis Current Visit: Yes Status: Acute Metabolic acidosis secondary to diabetic ketoacidosis and normal saline infusion. Bicarbonate 15 improved from yesterday. Chloride level 115. Plan: - Avoid giving NaCL (3) Pyelonephritis Current Visit: Yes Status: Acute Patient presented with flank pain bilaterally, superpubic discomfort, burning with urination and elevated WBC count. CT of the abdomen and pelvis upon admission IMPRESSION: Prominence of the ureters bilaterally with periureteral inflammatory change also noted bilaterally. No discrete obstructing calculi identified. Findings suggest either recently passed calculus or possibly ascending infectious process, such as pyelonephritis. Correlation with urinalysis suggested. Colonic diverticulosis without evidence for acute diverticulitis. Cholelithiasis. 04/05: Patient stable, continues to have suprapubic discomfort. Laboratory abnormalities improved. Plan: - Patient improving on IV ceftriaxone - D/c Zhao catheter - Continue strict intake and output monitoring (4) DKA (diabetic ketoacidoses) Current Visit: Yes Status: Acute Patient is an uncontrolled type II diabetic who does not use her insulin routinely at home. She admits only using 30 units of long-acting insulin daily and not her scheduled dosing. She states that her average glucoses are between 300 and 400. - Hemoglobin A1c 11.8 - Patient was treated for diabetic ketoacidosis upon admission with glucoses greater than 600, positive beta hydroxybutyrate, bicarbonate of 6, initial anion gap is 17 04/05: Anion gap 9, glucose controlled with current dosing. Plan: - Continue Levemir 20 units twice a day - Low-dose sliding scale insulin consider advancing as appetite improves. - Before meals at bedtime glucose checks - Diabetic diet Qualifiers: Diabetes mellitus type: type 1 Diabetes mellitus complication detail: without coma Qualified Code(s): E10.10 - Type 1 diabetes mellitus with ketoacidosis without coma (5) DAREK (acute kidney injury) Current Visit: Yes Status: Acute Acute kidney injury resolved, Secondary to dehydration in setting of diabetic ketoacidosis and pyelonephritis. Plan: Continue to monitor during inpatient stay. -Avoid nephrotoxic medications are renally dose antibiotics. - Urine culture and urinalysis sent. (6) Systolic murmur Current Visit: Yes Status: Acute Systolic murmur appreciated on auscultation. Patient denies any known history, no previous documented murmur. Echocardiogram: Impressions: Technically suboptimal study due to poor image quality. Sinus tachycardia. LVEF 70%. Normal LV chamber size and function. Mild left ventricular diastolic dysfunction. Mild concentric left ventricular hypertrophy. Normal right ventricular structure and function. Aortic valve not well visualized. There is an increased gradient across the LVOT and AV with Doppler evaluation. Grossly, there appears to be systolic anterior motion of the mitral valve with evidence of a moderate LVOT obstruction. Consider a repeat study with evaluation of the LVOT and AV when HR better controlled. No evidence of pulmonary hypertension. Plan: - Patient to continue monitoring with PCP. (7) DVT prophylaxis Current Visit: Yes Status: Acute Subcutaneous heparin 5000 units every 12 hours. Subjective Principal diagnosis: DKA Interval history: Patient seen and evaluated patient bedside this morning. She is alert, awake, interactive in no acute distress. She is still denying feeling hungry and has a low appetite. She denies any pain, discomfort, and abdominal pain or suprapubic burning. No other complaints or concerns this morning she understands that she will be moving out to general medical floor down from the ICU. Diabetic compliance was discussed patient states understanding. Objective PUL Vital signs: Last Vital Signs Temp 98.4 F 04/05/17 04:21 Pulse 109 04/05/17 06:00 Resp 17 04/05/17 06:00 BP 142/87 04/05/17 06:00 Pulse Ox 97 04/05/17 06:00 General appearance: no acute distress Eyes: nonicteric ENT: oropharynx moist Neck: supple Effort: normal Auscultation: bilateral: clear Percussion: bilateral: not dull Tactile fremitus: bilateral: normal Cardiovascular: other (Tachycardia, 2/6 systolic ejection murmur.) Gastrointestinal: normoactive bowel sounds, non-distended Integumentary: normal Extremities: no cyanosis, no edema, no clubbing Musculoskeletal: no deformities, ROM normal normal mental status, non-focal exam mood appropriate, affect normal Results - Laboratory Findings CBC and BMP: 04/05/17 04:54 04/05/17 04:54 PT/INR, D-dimer PT 11.1 Seconds (9.4-12.1) 04/03/17 06:48 Abnormal lab findings: Abnormal lab results MCV 82.8 fL (83.0-100.0) L 04/05/17 04:54 VBG pH 7.30 pH Units (7.32-7.42) L 04/04/17 05:44 VBG pCO2 29 mmHg (41-51) L 04/04/17 05:44 VBG pO2 79 mmHg (25-50) H 04/04/17 05:44 VBG HCO3 14 mEq/L (21-27) L 04/04/17 05:44 Potassium 3.3 mEq/L (3.5-4.5) L 04/05/17 04:54 Chloride 115 mEq/L (98-109) H 04/05/17 04:54 Carbon Dioxide 15 mEq/L (19-29) L 04/05/17 04:54 Glucose 165 mg/dL (70-99) H 04/05/17 04:54 POC Glucose 166 (58-89) H 04/04/17 23:51 Hemoglobin A1c 11.8 % (-5.6) H 04/03/17 06:48 Serum Total Protein 5.8 g/dL (6.0-8.3) L D 04/05/17 04:54 Albumin 2.2 g/dL (3.5-5.0) L D 04/05/17 04:54 Globulin 3.6 g/dL (2.4-3.5) H 04/05/17 04:54 Albumin/Globulin Ratio 0.6 (1.1-2.2) L 04/05/17 04:54 Lipase 93 Units/L (8-78) H 04/03/17 06:48 Urine Color [place] (Yellow) A 04/03/17 06:48 Urine Clarity Cloudy (Clear) A 04/03/17 06:48 Ur Specific [place] 1.027 (1.010-1.025) H 04/03/17 06:48 Urine Protein 100 mg/dL (Neg-Trace) H 04/03/17 06:48 Urine Glucose (UA) >=1000 mg/dL (Normal) H 04/03/17 06:48 Urine Ketones 80 mg/dL (Negative) H 04/03/17 06:48 Urine Blood Large (Negative) H 04/03/17 06:48 Urine Nitrite Positive (Negative) A 04/03/17 06:48 Urine Bilirubin Moderate (Negative) H 04/03/17 06:48 Ur Leukocyte Esterase Small (Negative) H 04/03/17 06:48 Urine Microscopic RBC TNTC per hpf (0-3) H 04/03/17 06:48 Urine Microscopic WBC TNTC per hpf (0-3) H 04/03/17 06:48 Ur Squamous Epith Cells Many per lpf (None-Few) H 04/03/17 06:48 Amorphous Sediment Moderate (Few) H 04/03/17 06:48 - Clinical Findings Intake & Output: Intake & Output 04/04/17 04/04/17 04/05/17 15:59 23:59 07:59 Intake Total 101 / 101 10 / 10 Output Total 1000 / 1000 250 / 250 400 / 400 Balance -899 / -899 -240 / -240 -400 / -400 Weight 80.9 kg Consult Discharge Plan - Plan Referrals: Lee Ann Joya, SALES AND MARKETING SPECIALIST [Primary Care Provider] - <Leisa Goodman - Last Filed: 04/05/17 21:48> Date of Encounter: 04/05/17 Objective PUL Vital signs: Last Vital Signs Temp 98.2 F 04/05/17 21:03 Pulse 101 04/05/17 21:03 Resp 14 04/05/17 21:03 BP 122/78 04/05/17 21:03 Pulse Ox 97 04/05/17 21:03 Results - Laboratory Findings CBC and BMP: 04/05/17 04:54 04/05/17 04:54 PT/INR, D-dimer PT 11.1 Seconds (9.4-12.1) 04/03/17 06:48 Abnormal lab findings: Abnormal lab results MCV 82.8 fL (83.0-100.0) L 04/05/17 04:54 VBG pH 7.30 pH Units (7.32-7.42) L 04/04/17 05:44 VBG pCO2 29 mmHg (41-51) L 04/04/17 05:44 VBG pO2 79 mmHg (25-50) H 04/04/17 05:44 VBG HCO3 14 mEq/L (21-27) L 04/04/17 05:44 Potassium 3.3 mEq/L (3.5-4.5) L 04/05/17 04:54 Chloride 115 mEq/L (98-109) H 04/05/17 04:54 Carbon Dioxide 15 mEq/L (19-29) L 04/05/17 04:54 Glucose 165 mg/dL (70-99) H 04/05/17 04:54 POC Glucose 206 (58-89) H 04/05/17 20:36 Hemoglobin A1c 11.8 % (-5.6) H 04/03/17 06:48 Serum Total Protein 5.8 g/dL (6.0-8.3) L D 04/05/17 04:54 Albumin 2.2 g/dL (3.5-5.0) L D 04/05/17 04:54 Globulin 3.6 g/dL (2.4-3.5) H 04/05/17 04:54 Albumin/Globulin Ratio 0.6 (1.1-2.2) L 04/05/17 04:54 Lipase 93 Units/L (8-78) H 04/03/17 06:48 Urine Color [place] (Yellow) A 04/03/17 06:48 Urine Clarity Cloudy (Clear) A 04/03/17 06:48 Ur Specific [place] 1.027 (1.010-1.025) H 04/03/17 06:48 Urine Protein 100 mg/dL (Neg-Trace) H 04/03/17 06:48 Urine Glucose (UA) >=1000 mg/dL (Normal) H 04/03/17 06:48 Urine Ketones 80 mg/dL (Negative) H 04/03/17 06:48 Urine Blood Large (Negative) H 04/03/17 06:48 Urine Nitrite Positive (Negative) A 04/03/17 06:48 Urine Bilirubin Moderate (Negative) H 04/03/17 06:48 Ur Leukocyte Esterase Small (Negative) H 04/03/17 06:48 Urine Microscopic RBC TNTC per hpf (0-3) H 04/03/17 06:48 Urine Microscopic WBC TNTC per hpf (0-3) H 04/03/17 06:48 Ur Squamous Epith Cells Many per lpf (None-Few) H 04/03/17 06:48 Amorphous Sediment Moderate (Few) H 04/03/17 06:48 - Clinical Findings Intake & Output: Intake & Output 04/05/17 04/05/17 04/05/17 07:59 15:59 23:59 Intake Total 100 / 100 0 / 0 Output Total 500 / 500 450 / 450 250 / 250 Balance -500 / -500 -350 / -350 -250 / -250 Weight 80.9 kg - Attending Attestation I saw the patient with the resident agree with History and Physical exam findings. Labs and Radiology were reviewed FUR TRIMMER: Patient is conscious oriented x3 following commands NECK : No JVD appreciated Pulmonary : Patient is on room air no evidence of V/Q mismatch Cardiac : Hemodynamically stable , ECHO showed some evidence of chronic diastolic dysfunction Nutrition/GI: Patient is on Diabetic diet Renal : DAREK improved after fluid resuscitation . Heme onc : No acute issues ID : Sepsis due to Pyelonephritis to continue ceftriaxone Endo: Patient has poor outpatient control needs to establish with diabetic nurse navigator Musculo skeletal / skin issues : No acute issues Disposition : To transfer to [facility] tele Code status: Full Code
[2017-04-05] MEDS ORDERED: Insulin LISPRO 300 UNITS/3 ML VIAL SQ SCH (07:30)
[2017-04-05] MEDS ORDERED: D5% in Water 1,000 ML IVC PRN (09:18)
[2017-04-05] MEDS ORDERED: Acetaminophen 325 MG TABLET PO PRN (09:18)
[2017-04-05] MEDS ORDERED: Dextrose Gel 15 GM PO PRN ×2 (09:18)
[2017-04-05] MEDS ORDERED: Insulin Human Regular 100 UNIT in 0.9 % Sodium Chloride 100 ML IVC SCH (09:18)
[2017-04-05] MEDS ORDERED: Ondansetron 4 MG/2 ML VIAL IVP PRN (09:18)
[2017-04-05] MEDS ORDERED: *HR* Dextrose 50 % in Water (Syg) 50 ML SYRINGE IVP PRN ×3 (09:18)
[2017-04-05] MEDS ORDERED: Naloxone 0.4 MG/ML INJ IVP PRN (09:18)
[2017-04-05] MEDS ORDERED: D5% in 0.45% NACL w KCl 20 MEQ/1,000 ML MLS IVC SCH (09:18)
[2017-04-05] MEDS ORDERED: D5% in 0.45% NACL 1,000 ML IVC PRN (09:18)
[2017-04-05] MEDS ORDERED: Insulin Regular, Human 100 UNIT/ML IV PRN (09:18)
--- NOTE | 2017-04-05 09:53 | Electrocardiograph Report ---
[place] [address] Test Date: 2017-04-03 Pat Name: Akua Anton Department: 104 Room: 12 Gender: F Impress Associate: TRAV : [id number] Requested By: Brooke See Order Number: [id number] Reading MD: Dario Mirza DO Measurements Intervals [place] Rate: 144 P: DC: 0 QRS: 16 QRSD: 102 T: 0 QT: 301 QTc: 384 Interpretive Statements PROBABLE SINUS TACHYCARDIA NONSPECIFIC T-WAVE ABNORMALITY Electronically Signed On 04-05-2017 9:52:00 EST by Dario Mirza DO
[2017-04-05] MEDS ORDERED: cefTRIAXone 1,000 MG in Water for inj. (sterile) 20 ML 10 ML IVP SCH (10:00)
[2017-04-05] MEDS: Insulin LISPRO 300 UNITS/3 ML VIAL SQ SCH ×3 (12:00→21:21)
[2017-04-05] MEDS: Gabapentin 300 MG CAPSULE PO SCH ×2 (15:26→21:22)
[2017-04-05] MEDS: *HR* Heparin 5,000 UNIT/ML VIAL SQ SCH (19:20)
[2017-04-05] MEDS: Insulin DETEMIR 100 UNIT/ML X5UNITS SQ SCH (21:22)
[2017-04-06] MEDS: *HR* Heparin 5,000 UNIT/ML VIAL SQ SCH ×2 (05:03→17:23)
[2017-04-06] MEDS: Insulin LISPRO 300 UNITS/3 ML VIAL SQ SCH ×4 (08:23→21:12)
[2017-04-06] MEDS: Insulin DETEMIR 100 UNIT/ML X5UNITS SQ SCH ×2 (08:23→21:12)
[2017-04-06] MEDS: Gabapentin 300 MG CAPSULE PO SCH ×3 (08:24→22:42)
[2017-04-06] MEDS: cefTRIAXone 1,000 MG in Water for inj. (sterile) 10 ML IVP SCH (08:24)
[2017-04-06] MEDS: Pantoprazole 40 MG VIAL IVP SCH (08:25)
[2017-04-06] MEDS ORDERED: Insulin DETEMIR 100 UNIT/ML X5UNITS SQ ONE (12:26)
--- NOTE | 2017-04-06 12:36 | Internal Med History&Physical ---
Date of Encounter: 04/06/17 Time of Encounter: 12:30 Assessment and Plan (1) DKA (diabetic ketoacidoses) Current visit: Yes Status: Acute This is resolved. I will repeat labs this morning. I will increase her Levemir to 30 units twice a day. She is currently on 20. I will give her 10 extra this morning. We will continue with Accu-Cheks. Continue with diabetic education. Her hemoglobin A1c is 11.8. Qualifiers: Diabetes mellitus type: type 1 Diabetes mellitus complication detail: without coma Qualified Code(s): E10.10 - Type 1 diabetes mellitus with ketoacidosis without coma (2) DAREK (acute kidney injury) Current visit: Yes Status: Acute This is improving. Continue with encouraging oral intake. She is off IV fluids. We will see what her labs look like this morning. (3) Pyelonephritis Current visit: Yes Status: Acute Continue with IV ceftriaxone. Follow up cultures. (4) Hyperlipidemia Current visit: Yes Status: Acute Continue statin. Qualifiers: Hyperlipidemia type: unspecified Qualified Code(s): E78.5 - Hyperlipidemia , unspecified (5) DVT prophylaxis Current visit: Yes Status: Acute Heparin subcutaneous. Internal Medicine - H&P: HPI Chief complaint: Transferred out of ICU and I am asked to assume care History of present illness: Ms. Anton is a 47 year old female history of diabetes type 1, depression, hyperlipidemia, GERD, who presented to [facility] on 1216 and was admitted under the imaging nurse service as she was in DKA. She was found to be in acute kidney injury as well. She was also being treated for pyelonephritis. The patient was treated with IV fluids in DKA protocol. Anion gap had closed and she was started on subcutaneous Levemir. She was transferred out of the ICU in stable condition overnight. She is currently eating lunch. She has tolerated diet. She has no complaints. She says she has never been in DKA before. Denies fever chills nausea vomiting chest pain shortness of breath. Symptoms are neurological symptoms. Past Med Surg Social Fam HX - Past Medical History Medical history: diabetes Psychiatric history: bipolar, depression - Past Surgical History Surgical History: hysterectomy - Social History Smoking Status: Never smoker Smokeless Tobacco Status: No Alcohol use: none Drug use: none Internal Medicine - H&P: Meds Dicyclomine [Bentyl] 20 mg PO QID 04/03/17 [History] Gabapentin [Neurontin] 600 mg PO TID 04/03/17 [History] Insulin ASPART [Novolog Flexpen] 0 units SQ TID PRN 04/03/17 [History] Insulin Glargine,Hum.rec.anlog [Lantus Solostar] 35 unit SQ BID 04/03/17 [ History] Ondansetron ODT [Zofran ODT] 8 mg SL DAILY PRN 04/03/17 [History] Paliperidone Palmitate [Invega Sustenna] 156 mg IJ QMONTH 04/03/17 [History] Phenazopyridine HCl 200 mg PO TID 04/03/17 [History] Pravastatin Sodium [Pravachol] 40 mg PO DAILY 04/03/17 [History] Sertraline [Zoloft] 50 mg PO DAILY 04/03/17 [History] Sitagliptin Phosphate [Januvia] 50 mg PO DAILY 04/03/17 [History] Sulfamethoxazole/Trimeth DS [Bactrim DS] 1 tab PO BID 04/03/17 [History] 3 Allergy/AdvReac Type Severity Reaction Status Date / Time No Known Allergies Allergy Verified 04/03/17 10:23 All Systems PM: A 10-system review of systems was performed and is negative for pertinent findings except as documented above in the HPI. Review of systems: All systems reviewed are negative except for what is mentioned above - Constitutional Vitals: Temp Pulse Resp BP Pulse Ox 98.0 F 94 16 121/84 97 04/06/17 10:50 04/06/17 10:50 04/06/17 10:50 04/06/17 10:50 04/06/17 10:50 Exam: GEN: NAD HEENT: AT, NC, No cyanosis, oral mucosa is moist, No JVD Lymphatics: No lymphadenoapthy Eyes: Extrocular muscles intact, anicteric CVS:RRR. S1, S2, No m/r/g RESP: CTAB ABD: Soft, NT, ND, +BS EXT: No edema, No rashes, 2+ DP NEURO: Nonfocal, CN II-XII intact, No focal motor or sensory deficits Psych: Cooperative, Not anxious or depressed Internal Med - H&P Results - Labs CBC & Chem 7: 04/05/17 04:54 04/05/17 04:54 - ABG Interpretation ABG results: 04/03/17 04/04/17 14:23 05:44 VBG pH 7.21 L 7.30 L VBG pCO2 28 L 29 L VBG pO2 55 H 79 H VBG HCO3 11 L 14 L - Impressions ITS Impressions Echocardiogram 04/04/17 09:47 Impressions: Technically suboptimal study due to poor image quality. Sinus tachycardia. LVEF 70%. Normal LV chamber size and function. Mild left ventricular diastolic dysfunction. Mild concentric left ventricular hypertrophy. Normal right ventricular structure and function. Aortic valve not well visualized. There is an increased gradient across the LVOT and AV with Doppler evaluation. Grossly, there appears to be systolic anterior motion of the mitral valve with evidence of a moderate LVOT obstruction. Consider a repeat study with evaluation of the LVOT and AV when HR better controlled. No evidence of pulmonary hypertension. Left Ventricular Wall Motion: Rest Echo Findings All wall segments showed normal motion. Findings: Study Quality * Technically suboptimal study due to poor image quality. ECG Findings * Sinus tachycardia. Left Ventricle * LVEF 70%. * Normal LV chamber size and function. * Mild concentric left ventricular hypertrophy. * Mild left ventricular diastolic dysfunction. Right Ventricle * Normal right ventricular structure and function. Left Atrium * Mildly dilated left atrium. Right Atrium * Normal right atrial size. Interatrial Septum * Interatrial septum not well evaluated. Aortic Valve * Aortic valve not well visualized. * There is an increased gradient across the LVOT and AV with Doppler evaluation. Grossly, there appears to be systolic anterior motion of the mitral valve with evidence of a moderate LVOT obstruction. Consider a repeat study with evaluation of the LVOT and AV when HR better controlled. * No aortic regurgitation. Mitral Valve * Normal mitral valve structure and function. * No mitral stenosis. * No mitral regurgitation. Tricuspid Valve * Normal tricuspid valve structure and function. * Trace tricuspid regurgitation. * No evidence of pulmonary hypertension. Pulmonic Valve * Pulmonic valve is not well visualized. * No pulmonic regurgitation. Aorta * Normally sized aortic root. Pericardium * The pericardium appears normal. IVC * The IVC is not well evaluated. Pulmonary Artery * Pulmonary artery not well visualized.
[2017-04-06 12:46] LABS: Basophils # 0.1 K/mcL (0.0-0.2); Basophils % 0.9 %; Eosinophils # 0.1 K/mcL (0.0-0.6); Eosinophils % 0.9 %; Hematocrit 38.7 % (35.3-44.9); Hemoglobin 13.2 g/dL (11.5-15.4); Immature Granulocytes % 1.5 % (0-4); Lymphocytes # 1.7 K/mcL (0.6-4.6); Lymphocytes % 24.8 %; Mean Corpuscular HGB Conc 34.1 g/dL (31.6-35.5); Mean Corpuscular Hemoglobin 28.7 pg (28.0-33.3); Mean Corpuscular Volume 84.1 fL (83.0-100.0); Mean Platelet Volume 9.5 fL (9.4-12.4); Monocytes # 0.5 K/mcL (0.0-1.3); Monocytes % 6.7 %; Neutrophils # 4.4 K/mcL (1.6-8.9); Platelet Count 236 K/mcL (140-400); Red Cell Distribution Width 12.5 % (11.5-14.5); Segmented Neutrophils % 65.2 %
[2017-04-06 13:31] LABS: BUN/Creatinine Ratio 25 (6-26); Blood Urea Nitrogen 15 mg/dL (6-20); Carbon Dioxide 19 mEq/L (23-29); Chloride 109 mEq/L (98-107); Glucose 238 mg/dL (70-105); Magnesium 1.6 mg/dL (1.6-2.6); Osmolality,Calculated 295 (280-300); Phosphorous 2.2 mg/dL (2.7-4.5); Potassium 3.4 mEq/L (3.5-5.1); Sodium 138 mEq/L (136-145); eGFR For African Americans > 60 (> 60); eGFR For Non-African Americans > 60 (> 60)
[2017-04-06 13:37] LABS: Platelet Estimate Normal (Normal); Reactive Lymphocytes Present (Not Present)
[2017-04-06] MEDS ORDERED: Magnesium Oxide 400 MG TABLET PO ONE (14:53)
[2017-04-07 04:44] LABS: Hematocrit 35.5 % (35.3-44.9); Hemoglobin 12.1 g/dL (11.5-15.4); Mean Corpuscular HGB Conc 34.1 g/dL (31.6-35.5); Mean Platelet Volume 9.5 fL (9.4-12.4)
[2017-04-07 04:48] LABS: Basophils # 0.1 K/mcL (0.0-0.2); Basophils % 0.7 %; Eosinophils # 0.2 K/mcL (0.0-0.6); Eosinophils % 2.2 %; Immature Granulocytes % 3.7 % (0-4); Immature Platelets 2.5 % (1.1-6.1); Lymphocytes # 2.5 K/mcL (0.6-4.6); Lymphocytes % 30.6 %; Mean Corpuscular Hemoglobin 28.4 pg (28.0-33.3); Mean Corpuscular Volume 83.3 fL (83.0-100.0); Monocytes # 0.7 K/mcL (0.0-1.3); Monocytes % 8.4 %; Neutrophils # 4.4 K/mcL (1.6-8.9); Platelet Count 296 K/mcL (140-400); Red Blood Count 4.26 M/mcL (3.82-4.97); Red Cell Distribution Width 12.4 % (11.5-14.5); Segmented Neutrophils % 54.4 %
[2017-04-07 05:05] LABS: BUN/Creatinine Ratio 23 (6-26); Blood Urea Nitrogen 13 mg/dL (6-20); Calcium 8.5 mg/dL (8.6-10.3); Carbon Dioxide 24 mEq/L (23-29); Chloride 111 mEq/L (98-107); Glucose 107 mg/dL (70-105); Magnesium 1.6 mg/dL (1.6-2.6); Osmolality,Calculated 303 (280-300); Phosphorous 4.2 mg/dL (2.7-4.5); Potassium 3.3 mEq/L (3.5-5.1); Sodium 146 mEq/L (136-145); eGFR For African Americans > 60 (> 60); eGFR For Non-African Americans > 60 (> 60)
[2017-04-07 05:50] LABS: Platelet Estimate Normal (Normal); Reactive Lymphocytes Present (Not Present)
[2017-04-07] MEDS: *HR* Heparin 5,000 UNIT/ML VIAL SQ SCH (06:07)
[2017-04-07 07:01] VITALS: BP 108/72
[2017-04-07] MEDS: Insulin LISPRO 300 UNITS/3 ML VIAL SQ SCH (08:31)
[2017-04-07] MEDS: Insulin DETEMIR 100 UNIT/ML X5UNITS SQ SCH (08:31)
[2017-04-07] MEDS: Gabapentin 300 MG CAPSULE PO SCH (08:31)
[2017-04-07] MEDS: cefTRIAXone 1,000 MG in Water for inj. (sterile) 10 ML IVP SCH (08:32)
[2017-04-07] MEDS: Pantoprazole 40 MG VIAL IVP SCH (08:32)
[2017-04-07] MEDS ORDERED: Magnesium Oxide 400 MG TABLET PO ONE (09:34)
[2017-04-07] MEDS ORDERED: Insulin DETEMIR 100 UNIT/ML X5UNITS SQ ONE (09:35)
--- NOTE | 2017-04-07 09:42 | Discharge Summary ---
Date of Encounter: 04/07/17 Time of Encounter: 09:40 - Discharge Diagnosis (1) DKA (diabetic ketoacidoses) Priority: Primary Status: Acute Qualifiers: Diabetes mellitus type: type 1 Diabetes mellitus complication detail: without coma Qualified Code(s): E10.10 - Type 1 diabetes mellitus with ketoacidosis without coma (2) DAREK (acute kidney injury) Priority: Primary Status: Acute (3) Pyelonephritis Priority: Primary Status: Acute (4) Hyperlipidemia Priority: Secondary Status: Acute Qualifiers: Hyperlipidemia type: unspecified Qualified Code(s): E78.5 - Hyperlipidemia , unspecified (5) Sepsis Priority: Primary Status: Acute Qualifiers: Sepsis type: sepsis due to unspecified organism Qualified Code(s): A41.9 - Sepsis, unspecified organism - Discharge Medications Prescriptions: Levofloxacin [Levaquin] 500 mg PO DAILY #3 tablet Home Medications: Dicyclomine [Bentyl] 20 mg PO QID 04/03/17 [History] Gabapentin [Neurontin] 600 mg PO TID 04/03/17 [History] Insulin ASPART [Novolog Flexpen] 0 units SQ TID PRN 04/03/17 [History] Ondansetron ODT [Zofran ODT] 8 mg SL DAILY PRN 04/03/17 [History] Paliperidone Palmitate [Invega Sustenna] 156 mg IJ QMONTH 04/03/17 [History] Phenazopyridine HCl 200 mg PO TID 04/03/17 [History] Pravastatin Sodium [Pravachol] 40 mg PO DAILY 04/03/17 [History] Sertraline [Zoloft] 50 mg PO DAILY 04/03/17 [History] Sitagliptin Phosphate [Januvia] 50 mg PO DAILY 04/03/17 [History] Insulin DETEMIR [Levemir] 40 unit SQ BID [id number] 04/07/17 [Rx] Levofloxacin [Levaquin] 500 mg PO DAILY #3 tablet 04/07/17 [Rx] Allergies/Adverse Reactions: 3 Allergy/AdvReac Type Severity Reaction Status Date / Time No Known Allergies Allergy Verified 04/03/17 10:23 Procedures/tests Complete & Pending: Procedures Performed prior 72 hours Category Date Time Status EV echocardiogram Routine Y 04/04/17 09:47 Completed Date of admission: 04/03/17 08:14 Primary care physician: Lee Ann Joya CNP - Patient Status Disposition: Home, Self-Care Condition: Fair Overall status at discharge: patient is back to baseline - Discharge Instructions Instructions: Urinary Tract Infection in Women (DC) Follow Up With: Lee Ann Joya CNP [Primary Care Provider] - 04/29/17 8:30 am - Diet and Activity Activity: resume usual activities as tolerated Diet: diabetic diet Hospital course: Ms. Anton is a 47 year old female with history of diabetes type 1, depression, hyperlipidemia, and GERD, who presented to [facility] on 04/03 and was admitted under the metalsmith apprentice service as she was in DKA. She was found to be in acute kidney injury as well. She was also being treated for pyelonephritis. The patient was treated with IV fluids and DKA protocol with insulin. Anion gap had closed and she was started on subcutaneous Levemir. She was transferred out of the ICU in stable condition overnight. She tolerated diet. On discharge have advised her to increase her Levemir to 40 units twice a day from 35 units that she was on. I advised her to keep a log of her glucose readings and take them to her PCP for further adjustments. Her cultures remained negative. I ended up discharging her on Levaquin to finish her course of treatment for her UTI. - Time Spent with Patient Total time spent providing and/or coordinating discharge services: Greater than 30 minutes - Constitutional Vitals: Temp Pulse Resp BP Pulse Ox 98.2 F 85 16 108/72 96 04/07/17 06:57 04/07/17 06:57 04/07/17 06:57 04/07/17 06:57 04/07/17 06:57 Exam: GEN: NAD CVS: RRR. S1, S2, No m/r/g RESP: CTAB ABD: Soft, NT, ND, +BS EXT: No edema. 2+ DP. No rashes NEURO: Nonfocal
[2017-04-07] MEDS ORDERED: Insulin DETEMIR 100 UNIT/ML X5UNITS SQ SCH (21:00)
== END 2017-04-07 11:40 | disposition home or self-care (01) | DRG 720 ==
LOC: EMEROO 06:23 → ICNU 08:14 → SUATTDRO 08:14 → ICNU 08:43 → 3ANU 04-05 16:23
PROVIDERS: ADMIT Internal Medicine Pulmonary Disease; ATTEND Internal Medicine

== ENCOUNTER 2020-07-04 17:52 | Inpatient (IN) ==
[2020-07-04 18:59] LABS: Basophils % 0.5 %; Hemoglobin 12.6 g/dL (11.5-15.4); Immature Granulocytes % 0.5 % (0-4)
[2020-07-04 19:01] LABS: Eosinophils # 0.2 K/mcL (0.0-0.6); Eosinophils % 3.6 %; Hematocrit 39.1 % (35.3-44.9); Immature Platelets 15.6 % (1.1-6.1); Lymphocytes # 1.7 K/mcL (0.6-4.6); Lymphocytes % 31.6 %; Mean Corpuscular HGB Conc 32.2 g/dL (31.6-35.5); Mean Corpuscular Hemoglobin 28.5 pg (28.0-33.3); Mean Corpuscular Volume 88.5 fL (83.0-100.0); Mean Platelet Volume 12.2 fL (9.4-12.4); Monocytes # 0.5 K/mcL (0.0-1.3); Monocytes % 8.2 %; Neutrophils # 3.1 K/mcL (1.6-8.9); Red Blood Count 4.42 M/mcL (3.82-4.97); Red Cell Distribution Width 12.2 % (11.5-14.5); Segmented Neutrophils % 55.6 %; White Blood Count 5.5 K/mcL (4.3-11.1)
[2020-07-04 19:06] LABS: INR 0.9; Prothrombin Time 10.5 Seconds (9.4-12.1)
[2020-07-04 19:09] LABS: Activated Partial Thrombo Time 27.2 Seconds (26.0-36.0); Platelet Count 4 K/mcL (140-400)
[2020-07-04] MEDS ORDERED: methylPREDNISolone 125 MG/2 ML VIAL IVP STA (19:26)
[2020-07-04 19:52] LABS: Mean Platelet Volume 13.3 fL (9.4-12.4)
[2020-07-04] MEDS ORDERED: Dextrose Gel 15 GM/37.5 ML TUBE PO PRN ×2 (21:58)
[2020-07-04] MEDS ORDERED: Naloxone 0.4 MG/ML INJ IVP PRN (21:58)
[2020-07-04] MEDS ORDERED: *HR* Dextrose 50 % in Water (Vial) 50 ML VIAL IVP PRN (21:58)
[2020-07-04] MEDS ORDERED: D5% in Water 1,000 ML IVC PRN (21:58)
[2020-07-04 22:08] LABS: Bilirubin,Urine Negative (Negative); Blood,Urine Negative (Negative); Clarity,Urine Clear (Clear); Color,Urine Colorless (Yellow); Glucose,Urine (UA) Normal (Normal); Ketones,Urine Negative (Negative); Leukocyte Esterase,Urine Negative (Negative); Nitrite,Urine Negative (Negative); Protein,Urine Negative (Neg-Trace); Specific Gravity,Urine 1.014 (1.010-1.025); Urobilinogen,Urine Normal (Normal)
[2020-07-04] MEDS ORDERED: Acetaminophen 325 MG TABLET PO ONE (22:14)
[2020-07-04] MEDS ORDERED: Pantoprazole 40 MG VIAL IVP SCH (22:15)
[2020-07-04] MEDS ORDERED: Immune Glob, Gamma (Gammagard) 20 GM/200 ML INFUS..BTL IVC ONE ×2 (22:15)
[2020-07-04] MEDS ORDERED: Immune Glob, Gamma (Gammagard) 10 GM/100 ML INFUS..BTL IVC ONE (22:15)
[2020-07-04] MEDS ORDERED: Insulin LISPRO 300 UNITS/3 ML VIAL SUBQ SCH (22:15)
[2020-07-04] MEDS ORDERED: Famotidine 20 MG/2 ML VIAL IVP ONE (22:15)
[2020-07-04] MEDS ORDERED: Dexamethasone 4 MG/ML VIAL IVP ONE (22:25)
[2020-07-04 22:39] LABS: % Iron Saturation 17 % (15-50); Iron 65 mcg/dL (50-170); Transferrin 272 mg/dL (203-362)
[2020-07-04 22:57] LABS: Ferritin 156 ng/mL (10-120)
[2020-07-04 23:02] LABS: Folate 15.5 ng/mL (3.0-16.0)
[2020-07-04] MEDS: Insulin DETEMIR 100 UNIT/ML X5UNITS SUBQ SCH (23:14)
[2020-07-04 23:30] LABS: Magnesium 1.6 mg/dL (1.6-2.6); Phosphorous 3.6 mg/dL (2.7-4.5)
[2020-07-04 23:43] LABS: Alanine Aminotransferase 10 Units/L (7-52); Albumin 4.1 g/dL (3.5-5.7); Albumin/Globulin Ratio 1.4 (1.1-2.2); Alkaline Phosphatase 76 Units/L (34-104); Aspartate Amino Transferase 12 Units/L (13-39); BUN/Creatinine Ratio 24 (6-26); Bilirubin,Total 0.2 mg/dL (0.3-1.0); Blood Urea Nitrogen 17 mg/dL (6-20); Calcium 9.2 mg/dL (8.6-10.3); Carbon Dioxide 24 mEq/L (23-29); Chloride 105 mEq/L (98-107); Globulin 2.9 g/dL (2.4-3.5); Glucose 83 mg/dL (70-105); Osmolality,Calculated 293 (280-300); Potassium 3.8 mEq/L (3.5-5.1); Sodium 141 mEq/L (136-145); eGFR For African Americans > 60 (> 60); eGFR For Non-African Americans > 60 (> 60)
[2020-07-05 03:40] LABS: Hepatitis B Surface Antigen Nonreactive (Nonreactive)
[2020-07-05 04:09] LABS: Hepatitis B Core IgM Nonreactive (Nonreactive)
[2020-07-05 04:10] LABS: Hepatitis C Virus Antibody Nonreactive (Nonreactive)
[2020-07-05 04:11] LABS: Hepatitis A Antibody IgM Nonreactive (Nonreactive)
[2020-07-05 05:49] LABS: Immature Granulocytes % 1.2 % (0-4); Monocytes % 1.7 %; Red Cell Distribution Width 12.1 % (11.5-14.5)
[2020-07-05 05:51] LABS: Basophils % 0.5 %; Eosinophils % 0.2 %; Hematocrit 40.7 % (35.3-44.9); Immature Platelets 19.1 % (1.1-6.1); Lymphocytes # 0.4 K/mcL (0.6-4.6); Lymphocytes % 10.5 %; Mean Corpuscular HGB Conc 31.9 g/dL (31.6-35.5); Mean Corpuscular Hemoglobin 28.5 pg (28.0-33.3); Mean Corpuscular Volume 89.3 fL (83.0-100.0); Monocytes # 0.1 K/mcL (0.0-1.3); Neutrophils # 3.6 K/mcL (1.6-8.9); Red Blood Count 4.56 M/mcL (3.82-4.97); Segmented Neutrophils % 85.9 %; White Blood Count 4.2 K/mcL (4.3-11.1)
[2020-07-05 05:54] LABS: Platelet Count 5 K/mcL (140-400)
[2020-07-05 05:56] LABS: Prothrombin Time 11.4 Seconds (9.4-12.1)
[2020-07-05 05:59] LABS: Activated Partial Thrombo Time 27.6 Seconds (26.0-36.0)
[2020-07-05 06:10] LABS: Alanine Aminotransferase 11 Units/L (7-52); Albumin 3.9 g/dL (3.5-5.7); Albumin/Globulin Ratio 1.1 (1.1-2.2); Alkaline Phosphatase 78 Units/L (34-104); Aspartate Amino Transferase 11 Units/L (13-39); BUN/Creatinine Ratio 27 (6-26); Bilirubin,Total 0.3 mg/dL (0.3-1.0); Blood Urea Nitrogen 20 mg/dL (6-20); Carbon Dioxide 20 mEq/L (23-29); Chloride 105 mEq/L (98-107); Globulin 3.6 g/dL (2.4-3.5); Glucose 323 mg/dL (70-105); Osmolality,Calculated 299 (280-300); Potassium 4.5 mEq/L (3.5-5.1); Sodium 137 mEq/L (136-145); Total Protein 7.5 g/dL (6.4-8.9); eGFR For African Americans > 60 (> 60); eGFR For Non-African Americans > 60 (> 60)
[2020-07-05] MEDS ORDERED: Melatonin 3 MG TABLET PO PRN (08:18)
[2020-07-05] MEDS: Insulin LISPRO 300 UNITS/3 ML VIAL SUBQ SCH ×4 (08:24→21:58)
[2020-07-05] MEDS ORDERED: Pantoprazole 40 MG VIAL IVP SCH (09:00)
[2020-07-05] MEDS: methylPREDNISolone 125 MG/2 ML VIAL IVP SCH ×2 (09:33→17:25)
[2020-07-05] MEDS: Multivit/Ca/Min/Fe/FA 1 TAB TABLET PO SCH (09:34)
[2020-07-05] MEDS: Cyanocobalamin (B-12) 1,000 MCG TABLET PO SCH (09:34)
[2020-07-05] MEDS: (Cariprazine Hcl [Vraylar] 3 MG Capsule) PO SCH (09:34)
[2020-07-05 16:44] LABS: Hematocrit 38.4 % (35.3-44.9); Hemoglobin 12.4 g/dL (11.5-15.4); Immature Granulocytes % 0.8 % (0-4); Immature Platelets 15.2 % (1.1-6.1); Lymphocytes # 0.5 K/mcL (0.6-4.6); Lymphocytes % 7.7 %; Mean Corpuscular HGB Conc 32.3 g/dL (31.6-35.5); Mean Corpuscular Hemoglobin 28.6 pg (28.0-33.3); Mean Corpuscular Volume 88.5 fL (83.0-100.0); Mean Platelet Volume 12.7 fL (9.4-12.4); Monocytes # 0.3 K/mcL (0.0-1.3); Monocytes % 4.2 %; Red Blood Count 4.34 M/mcL (3.82-4.97); Red Cell Distribution Width 12.1 % (11.5-14.5); Segmented Neutrophils % 87.3 %; White Blood Count 6.7 K/mcL (4.3-11.1)
[2020-07-05 16:47] LABS: Neutrophils # 5.9 K/mcL (1.6-8.9); Platelet Count 16 K/mcL (140-400)
[2020-07-05] MEDS ORDERED: IVIG (wt based) Privigen 5 GM/50 ML INFUS..BTL IVC ONE (16:58)
[2020-07-05] MEDS ORDERED: Dexamethasone Sodium Phos/PF 10 MG/ML VIAL IVP ONE (17:30)
[2020-07-05] MEDS ORDERED: Immune Glob, Gamma (Gammagard) 20 GM/200 ML INFUS..BTL IVC ONE ×2 (17:30)
[2020-07-05] MEDS ORDERED: Famotidine 20 MG/2 ML VIAL IVP ONE (17:30)
[2020-07-05] MEDS ORDERED: Immune Glob, Gamma (Gammagard) 10 GM/100 ML INFUS..BTL IVC ONE (17:30)
[2020-07-05] MEDS ORDERED: Acetaminophen 325 MG TABLET PO ONE (17:30)
[2020-07-05] MEDS: Insulin DETEMIR 100 UNIT/ML X5UNITS SUBQ SCH (21:59)
[2020-07-06] MEDS: methylPREDNISolone 125 MG/2 ML VIAL IVP SCH ×3 (01:10→17:23)
[2020-07-06 03:32] LABS: Alanine Aminotransferase 10 Units/L (7-52); Albumin 3.6 g/dL (3.5-5.7); Albumin/Globulin Ratio 0.7 (1.1-2.2); Alkaline Phosphatase 69 Units/L (34-104); Aspartate Amino Transferase 10 Units/L (13-39); BUN/Creatinine Ratio 30 (6-26); Bilirubin,Total 0.3 mg/dL (0.3-1.0); Blood Urea Nitrogen 21 mg/dL (6-20); Calcium 9.2 mg/dL (8.6-10.3); Carbon Dioxide 25 mEq/L (23-29); Chloride 102 mEq/L (98-107); Globulin 4.9 g/dL (2.4-3.5); Glucose 272 mg/dL (70-105); Magnesium 1.7 mg/dL (1.6-2.6); Osmolality,Calculated 291 (280-300); Phosphorous 3.7 mg/dL (2.7-4.5); Potassium 4.1 mEq/L (3.5-5.1); Sodium 134 mEq/L (136-145); Total Protein 8.5 g/dL (6.4-8.9); eGFR For African Americans > 60 (> 60); eGFR For Non-African Americans > 60 (> 60)
[2020-07-06 03:43] LABS: Basophils % 0.2 %; Hematocrit 36.7 % (35.3-44.9); Immature Granulocytes % 0.9 % (0-4); Lymphocytes # 0.6 K/mcL (0.6-4.6); Lymphocytes % 9.8 %; Mean Corpuscular HGB Conc 32.7 g/dL (31.6-35.5); Mean Corpuscular Hemoglobin 29.2 pg (28.0-33.3); Mean Corpuscular Volume 89.3 fL (83.0-100.0); Mean Platelet Volume 12.9 fL (9.4-12.4); Monocytes # 0.2 K/mcL (0.0-1.3); Monocytes % 3.9 %; Neutrophils # 4.9 K/mcL (1.6-8.9); Red Blood Count 4.11 M/mcL (3.82-4.97); Red Cell Distribution Width 12.1 % (11.5-14.5); Segmented Neutrophils % 85.2 %; White Blood Count 5.7 K/mcL (4.3-11.1)
[2020-07-06 03:44] LABS: Platelet Count 33 K/mcL (140-400)
[2020-07-06] MEDS: Cyanocobalamin (B-12) 1,000 MCG TABLET PO SCH (08:01)
[2020-07-06] MEDS: Multivit/Ca/Min/Fe/FA 1 TAB TABLET PO SCH (08:01)
[2020-07-06] MEDS: (Cariprazine Hcl [Vraylar] 3 MG Capsule) PO SCH (08:02)
[2020-07-06] MEDS: Insulin LISPRO 300 UNITS/3 ML VIAL SUBQ SCH ×7 (08:03→21:49)
[2020-07-06] MEDS ORDERED: Insulin DETEMIR 100 UNIT/ML X5UNITS SUBQ SCH (09:00)
[2020-07-06] MEDS: Insulin DETEMIR 100 UNIT/ML X5UNITS SUBQ SCH (21:49)
[2020-07-07 01:45] LABS: Hematocrit 36.9 % (35.3-44.9); Hemoglobin 12.1 g/dL (11.5-15.4); Immature Granulocytes % 1.5 % (0-4); Lymphocytes # 0.7 K/mcL (0.6-4.6); Lymphocytes % 10.8 %; Mean Corpuscular HGB Conc 32.8 g/dL (31.6-35.5); Mean Corpuscular Hemoglobin 28.6 pg (28.0-33.3); Mean Corpuscular Volume 87.2 fL (83.0-100.0); Mean Platelet Volume 11.4 fL (9.4-12.4); Monocytes # 0.2 K/mcL (0.0-1.3); Monocytes % 3.7 %; Neutrophils # 5.5 K/mcL (1.6-8.9); Red Blood Count 4.23 M/mcL (3.82-4.97); Red Cell Distribution Width 11.9 % (11.5-14.5); White Blood Count 6.6 K/mcL (4.3-11.1)
[2020-07-07 01:46] LABS: Platelet Count 54 K/mcL (140-400)
[2020-07-07 02:03] LABS: Alanine Aminotransferase 9 Units/L (7-52); Albumin 3.6 g/dL (3.5-5.7); Albumin/Globulin Ratio 0.8 (1.1-2.2); Alkaline Phosphatase 62 Units/L (34-104); Aspartate Amino Transferase 8 Units/L (13-39); BUN/Creatinine Ratio 33 (6-26); Bilirubin,Total 0.3 mg/dL (0.3-1.0); Blood Urea Nitrogen 25 mg/dL (6-20); Calcium 8.9 mg/dL (8.6-10.3); Carbon Dioxide 25 mEq/L (23-29); Chloride 101 mEq/L (98-107); Globulin 4.4 g/dL (2.4-3.5); Glucose 245 mg/dL (70-105); Osmolality,Calculated 293 (280-300); Phosphorous 2.6 mg/dL (2.7-4.5); Sodium 135 mEq/L (136-145); eGFR For African Americans > 60 (> 60); eGFR For Non-African Americans > 60 (> 60)
[2020-07-07] MEDS: methylPREDNISolone 125 MG/2 ML VIAL IVP SCH ×2 (02:40→08:56)
[2020-07-07 07:38] LABS: ANA IgG by ELISA NONE DETECTED (None Detected)
[2020-07-07] MEDS: Multivit/Ca/Min/Fe/FA 1 TAB TABLET PO SCH (08:46)
[2020-07-07] MEDS: Cyanocobalamin (B-12) 1,000 MCG TABLET PO SCH (08:47)
[2020-07-07] MEDS: (Cariprazine Hcl [Vraylar] 3 MG Capsule) PO SCH (08:48)
[2020-07-07] MEDS: Insulin DETEMIR 100 UNIT/ML X5UNITS SUBQ SCH ×2 (08:48→20:06)
[2020-07-07] MEDS: Insulin LISPRO 300 UNITS/3 ML VIAL SUBQ SCH ×6 (08:49→20:05)
[2020-07-07] MEDS ORDERED: predniSONE 20 MG TABLET PO SCH (09:00)
[2020-07-08 05:48] LABS: Basophils % 0.3 %; Eosinophils % 0.6 %; Hematocrit 39.4 % (35.3-44.9); Immature Granulocytes % 1.6 % (0-4); Immature Platelets 4.9 % (1.1-6.1); Lymphocytes # 2.3 K/mcL (0.6-4.6); Lymphocytes % 36.4 %; Mean Corpuscular Hemoglobin 29.1 pg (28.0-33.3); Mean Corpuscular Volume 88.1 fL (83.0-100.0); Mean Platelet Volume 11.4 fL (9.4-12.4); Monocytes # 0.5 K/mcL (0.0-1.3); Monocytes % 7.8 %; Neutrophils # 3.4 K/mcL (1.6-8.9); Red Blood Count 4.47 M/mcL (3.82-4.97); Red Cell Distribution Width 11.8 % (11.5-14.5); Segmented Neutrophils % 53.3 %; White Blood Count 6.3 K/mcL (4.3-11.1)
[2020-07-08 05:51] LABS: Platelet Count 61 K/mcL (140-400)
[2020-07-08 06:16] LABS: Alanine Aminotransferase 9 Units/L (7-52); Albumin 3.5 g/dL (3.5-5.7); Albumin/Globulin Ratio 0.9 (1.1-2.2); Alkaline Phosphatase 58 Units/L (34-104); Aspartate Amino Transferase 13 Units/L (13-39); BUN/Creatinine Ratio 38 (6-26); Bilirubin,Total 0.3 mg/dL (0.3-1.0); Blood Urea Nitrogen 25 mg/dL (6-20); Calcium 8.9 mg/dL (8.6-10.3); Carbon Dioxide 28 mEq/L (23-29); Chloride 104 mEq/L (98-107); Globulin 4.1 g/dL (2.4-3.5); Glucose 100 mg/dL (70-105); Magnesium 1.7 mg/dL (1.6-2.6); Osmolality,Calculated 292 (280-300); Phosphorous 3.2 mg/dL (2.7-4.5); Potassium 4.1 mEq/L (3.5-5.1); Sodium 139 mEq/L (136-145); Total Protein 7.6 g/dL (6.4-8.9); eGFR For African Americans > 60 (> 60); eGFR For Non-African Americans > 60 (> 60)
[2020-07-08 06:51] VITALS: BP 119/78
[2020-07-08] MEDS: Insulin DETEMIR 100 UNIT/ML X5UNITS SUBQ SCH (07:37)
[2020-07-08] MEDS: (Cariprazine Hcl [Vraylar] 3 MG Capsule) PO SCH (07:37)
[2020-07-08] MEDS: Insulin LISPRO 300 UNITS/3 ML VIAL SUBQ SCH (07:37)
[2020-07-08] MEDS ORDERED: predniSONE 20 MG TABLET PO SCH (09:00)
[2020-07-08] MEDS: Cyanocobalamin (B-12) 1,000 MCG TABLET PO SCH (09:29)
[2020-07-08] MEDS: Multivit/Ca/Min/Fe/FA 1 TAB TABLET PO SCH (09:29)
[2020-07-09 09:52] LABS: Beta Globulin (PEP) 0.95 g/dL (0.48-1.10)
[2020-07-09 10:59] LABS: IFE Reflexed NOT DONE
== END 2020-07-08 11:29 | disposition home or self-care (01) | DRG 661 ==
LOC: EMEROOARM 17:52 → 3BNU 17:52 → SUATTDRO 21:06 → 3BNU 22:15
PROVIDERS: ADMIT Family Medicine; ATTEND Internal Medicine